=== PATIENT | male | born 1985 | race Caucasian/White ===

== ENCOUNTER 2018-08-16 15:44 | Outpatient (REF) | payer SELFPAY ==
[2018-08-16 16:58] LABS: Sperm(Post-Vasectomy) Absent
== END 2018-08-16 16:04 ==
LOC: NCHCO 15:44
PROVIDERS: PCP Nurse Practitioner Family; Visit Provider Nurse Practitioner
DX: Z98.52 Vasectomy status (principal)
CPT/HCPCS: 89321

== ENCOUNTER 2018-11-18 11:46 | Emergency (ER) | payer SELFPAY ==
[2018-11-18 11:50] VITALS: BP 118/77; PULSE 64; RESP 16; TEMP 36.5; O2SAT 99
--- NOTE | 2018-11-18 12:06 | W.ED.GENAD ---
Discharge Plan Disposition Patient Disposition: HOME Condition: Good Discharge Details Chief Complaint: Epistaxis Clinical Impression: Epistaxis Primary Care Provider: Florinda Green ED Provider: Jojo Monk Home Meds and New Rx's Prescriptions: No Action No Known Home Meds RF: 0 Discharge Instructions Instructions: Nosebleed (ED) Additional Instructions: Encourage hydration. Nasal saline nightly. Humidifier next to your bed. If you develop inability to control your nosebleeds or other new/worsening symptoms please seek care urgently once again. Otherwise, please follow-up with primary care in the next 1 to 2 weeks Referrals: Florinda Geren [Primary Care Provider] - Medical Decision Making Patient is a 33-year-old male presents today with chief complaint of intermittent epistaxis. He reports that for the past few weeks he has, on occasion, noted some small amount of blood when he blows his nose or with digital manipulation. He reports that he is tried to cut back on the digital manipulation as he found that this was an direct correlation to the bleeding. Patient denies any sinus discomfort, fever/chills, headache, congestion, sore throat. Denies any hematuria, bleeding per rectum, bleeding of gums. Denies any nasal trauma. On exam, the patient appears well. No abnormality noted on nasal exam. Patient was primarily seeking reassurance as he was concerned that his brain bleeding or that he may potentially bleed to from his nose given the chronicity symptoms. Advised that this is likely associated with digital manipulation as well as dry mucous membranes. I advised to notify her next was bad as well as nasal saline daily. We discussed new/worsening symptoms when to seek care urgently once again. Advise follow-up with primary care. All his questions and concerns were addressed and he is in agreement this plan HPI General Mode of arrival: ambulatory. Date/Time Provider Initiated Documentation: 11/18/18 12:06. Limitations to Documentation: no limitations. Information obtained by: patient and RN notes reviewed. History of Present Illness 33 year old M presents to the emergency department with the chief complaint of intermittent epistaxis, described as mild, and is localized to the face. Patient reports no radiation. Patient started experiencing this week(s) and it has been intermittent and now resolved. Other factors that worsen symptoms (notes more frequently at night) . Patient notes no other symptoms.. Patient did receive the following treatments prior to arrival, none Related Data Home Medications Medication Instructions Recorded Confirmed Unknown [No Known Home Meds] 11/18/18 11/18/18 Allergies Allergy/AdvReac Type Severity Reaction Status Date / Time No Known Allergies Allergy Unverified 11/18/18 11:56 General Stated Complaint: Epistaxis STEPHEN: 4 Review of Systems Constitutional Reports as per HPI and Denies headache(s) Eyes Reports as per HPI, Denies eye discharge and Denies irritation ENT Reports as per HPI, Denies change in voice, Denies otalgia, Denies facial pain, Denies headache(s), Denies post nasal drip, Denies sinus pain, Denies sore throat, Denies tongue swelling and Reports other (epistaxis) Cardiovascular Reports as per HPI, Denies chest pain and Denies dyspnea Respiratory Reports as per HPI, Denies cough and Denies dyspnea Gastrointestinal Reports as per HPI, Denies abdominal pain, Denies change in bowel habits, Denies nausea and Denies vomiting Integumentary/Breasts Reports as per HPI and Denies rash Neurologic Reports as per HPI and Denies headache(s) Allergic/Immunologic Denies tongue swelling [facility] Social History Smoking/Tobacco Use Status: Never Alcohol Intake: current Alcohol Intake frequency: a few times a week Drug use: Never Do you feel safe at home: Yes Do you feel safe in your relationship?: Yes Exam Const General: cooperative, healthy appearing, comfortable, no acute distress, well developed and well groomed Nutritional Appearance: average body habitus and well nourished Orientation: alert and awake [facility] Head: normal to inspection, normocephalic and atraumatic Ears: hearing grossly normal bilaterally, external ears normal and TM's normal bilaterally General nose exam: external nose normal, nares normal, no nasal polyps, nasal mucous membranes and turbinates normal, septum normal, no nasal discharge and no epistaxis Face and sinus: normal facial exam, sinuses nontender and face symmetric Mouth: oral mucosae normal, lip normal, tongue normal, oropharynx normal and moist mucous membranes Teeth and gingiva: dentition normal Throat: posterior oropharynx normal, tonsils normal and uvula midline Eyes General: appearance normal, both eyes and all related structures Neck Neck: normal visual inspection, full ROM, no lymphadenopathy and no meningeal signs Resp Effort & Inspection: normal respiratory effort, able to speak in complete sentences and no respiratory distress Auscultation: clear to auscultation bilaterally, no rales, no rhonchi and no wheezes Cardio Rate: regular rate Rhythm: regular rhythm Heart Sounds: S1 normal and S2 normal Skin General skin exam: no rashes or lesions noted Neuro General: alert and awake Cognition: normal cognition Speech: speech normal Gait: normal gait Psych Appearance: grossly normal and well kempt Mental Status: mental status grossly normal Speech and Movement: speech and movement normal Course Vital Signs Temperature 36.5 C 11/18/18 11:50 Pulse 64 11/18/18 11:50 Respiratory Rate 16 11/18/18 11:50 Blood Pressure 118/77 11/18/18 11:50 Pulse Oximetry 99 11/18/18 11:50 Temperature 36.5 C 11/18/18 11:50 Pulse 64 11/18/18 11:50 Respiratory Rate 16 11/18/18 11:50 Respiratory Effort Non-Labored 11/18/18 11:54 Blood Pressure 118/77 11/18/18 11:50 Pulse Oximetry 99 11/18/18 11:50 Oxygen Delivery Method Room Air 11/18/18 11:50 Oxygen Flow Rate 0 11/18/18 11:50 Pain Level 1 11/18/18 11:50
--- NOTE | 2018-11-18 12:10 | ED.GENADUL_ITS ---
Discharge Plan Disposition Patient Disposition: HOME Condition: Good Discharge Details Chief Complaint: Epistaxis Clinical Impression: Epistaxis Primary Care Provider: Florinda Green ED Provider: Jojo Monk Home Meds and New Rx's Prescriptions: No Action No Known Home Meds RF: 0 Discharge Instructions Instructions: Nosebleed (ED) Additional Instructions: Encourage hydration. Nasal saline nightly. Humidifier next to your bed. If you develop inability to control your nosebleeds or other new/worsening symptoms please seek care urgently once again. Otherwise, please follow-up with primary care in the next 1 to 2 weeks Referrals: Florinda Green [Primary Care Provider] - Medical Decision Making Patient is a 33-year-old male presents today with chief complaint of intermittent epistaxis. He reports that for the past few weeks he has, on occasion, noted some small amount of blood when he blows his nose or with digital manipulation. He reports that he is tried to cut back on the digital manipulation as he found that this was an direct correlation to the bleeding. Patient denies any sinus discomfort, fever/chills, headache, congestion, sore throat. Denies any hematuria, bleeding per rectum, bleeding of gums. Denies any nasal trauma. On exam, the patient appears well. No abnormality noted on nasal exam. Patient was primarily seeking reassurance as he was concerned that his brain bleeding or that he may potentially bleed to from his nose given the chronicity symptoms. Advised that this is likely associated with digital manipulation as well as dry mucous membranes. I advised to notify her next was bad as well as nasal saline daily. We discussed new/worsening symptoms when to seek care urgently once again. Advise follow-up with primary care. All his questions and concerns were addressed and he is in agreement this plan HPI General Mode of arrival: ambulatory . Date/Time Provider Initiated Documentation: 11/18/18 12:06 . Limitations to Documentation: no limitations . Information obtained by: patient and RN notes reviewed . History of Present Illness 33 year old M presents to the emergency department with the chief complaint of intermittent epistaxis, described as mild, and is localized to the face. Patient reports no radiation. Patient started experiencing this week(s) and it has been intermittent and now resolved. Other factors that worsen symptoms (notes more frequently at night) . Patient notes no other symptoms.. Patient did receive the following treatments prior to arrival, none Related Data Home Medications Medication Instructions Recorded Confirmed Unknown [No Known Home Meds] 11/18/18 11/18/18 Allergies Allergy/AdvReac Type Severity Reaction Status Date / Time No Known Allergies Allergy Unverified 11/18/18 11:56 General Stated Complaint: Epistaxis STEPHEN: 4 Review of Systems Constitutional Reports as per HPI and Denies headache(s) Eyes Reports as per HPI, Denies eye discharge and Denies irritation ENT Reports as per HPI, Denies change in voice, Denies otalgia, Denies facial pain, Denies headache(s), Denies post nasal drip, Denies sinus pain, Denies sore throat, Denies tongue swelling and Reports other (epistaxis) Cardiovascular Reports as per HPI, Denies chest pain and Denies dyspnea Respiratory Reports as per HPI, Denies cough and Denies dyspnea Gastrointestinal Reports as per HPI, Denies abdominal pain, Denies change in bowel habits, Denies nausea and Denies vomiting Integumentary/Breasts Reports as per HPI and Denies rash Neurologic Reports as per HPI and Denies headache(s) Allergic/Immunologic Denies tongue swelling [facility] Social History Smoking/Tobacco Use Status: Never Alcohol Intake: current Alcohol Intake frequency: a few times a week Drug use: Never Do you feel safe at home: Yes Do you feel safe in your relationship?: Yes Exam Const General: cooperative, healthy appearing, comfortable, no acute distress, well de veloped and well groomed Nutritional Appearance: average body habitus and well nourished Orientation: alert and awake [facility] Head: normal to inspection, normocephalic and atraumatic Ears: hearing grossly normal bilaterally, external ears normal and TM's normal bilaterally General nose exam: external nose normal, nares normal, no nasal polyps, nasal mucous membranes and turbinates normal, septum normal, no nasal discharge and no epistaxis Face and sinus: normal facial exam, sinuses nontender and face symmetric Mouth: oral mucosae normal, lip normal, tongue normal, oropharynx normal and moist mucous membranes Teeth and gingiva: dentition normal Throat: posterior oropharynx normal, tonsils normal and uvula midline Eyes General: appearance normal, both eyes and all related structures Neck Neck: normal visual inspection, full ROM, no lymphadenopathy and no meningeal signs Resp Effort & Inspection: normal respiratory effort, able to speak in complete sentences and no respiratory distress Auscultation: clear to auscultation bilaterally, no rales, no rhonchi and no wheezes Cardio Rate: regular rate Rhythm: regular rhythm Heart Sounds: S1 normal and S2 normal Skin General skin exam: no rashes or lesions noted Neuro General: alert and awake Cognition: normal cognition Speech: speech normal Gait: normal gait Psych Appearance: grossly normal and well kempt Mental Status: mental status grossly normal Speech and Movement: speech and movement normal Course Vital Signs Temperature 36.5 C 11/18/18 11:50 Pulse 64 11/18/18 11:50 Respiratory Rate 16 11/18/18 11:50 Blood Pressure 118/77 11/18/18 11:50 Pulse Oximetry 99 11/18/18 11:50 Temperature 36.5 C 11/18/18 11:50 Pulse 64 11/18/18 11:50 Respiratory Rate 16 11/18/18 11:50 Respiratory Effort Non-Labored 11/18/18 11:54 Blood Pressure 118/77 11/18/18 11:50 Pulse Oximetry 99 11/18/18 11:50 Oxygen Delivery Method Room Air 11/18/18 11:50 Oxygen Flow Rate 0 11/18/18 11:50 Pain Level 1 11/18/18 11:50
[2018-11-18 12:12] VITALS: BP 118/77; PULSE 64; RESP 16; TEMP 36.5; O2SAT 99
== END 2018-11-18 12:13 | disposition home or self-care (01) ==
PROVIDERS: Emergency Provider Physician Assistant; PCP Nurse Practitioner Family
DX: R04.0 Epistaxis (principal)
CPT/HCPCS: 99282

== ENCOUNTER → 2020-08-27 23:37 | Outpatient (REF) | payer SELFPAY ==
[2020-08-29 14:08] LABS: Chlamydia Result Negative (Negative); GC Result Negative (Negative)
== END ==
LOC: LBN 23:37
PROVIDERS: PCP Nurse Practitioner Family; Visit Provider Physician Assistant Medical
DX: Z11.3 Encounter for screening for infections with a predominantly sexual mode of transmission (principal)
CPT/HCPCS: 87491; 87591

== ENCOUNTER 2020-08-30 20:58 | Outpatient (REF) | payer SELFPAY ==
[2020-09-05 11:38] LABS: Source Urine
[2020-09-05 11:39] LABS: T.vaginalis, Misc, RNA Negative (Negative)
== END 2020-08-30 20:59 | disposition home or self-care (01) ==
LOC: NCHCN 20:58
PROVIDERS: PCP Nurse Practitioner Family; Visit Provider Nurse Practitioner Family
DX: Z11.3 Encounter for screening for infections with a predominantly sexual mode of transmission (principal)
CPT/HCPCS: 87661

== ENCOUNTER 2020-09-05 14:11 | Outpatient (REF) | payer SELFPAY ==
[2020-09-06 11:42] LABS: HSV 1 DNA Result Negative (Negative); HSV 2 DNA Result Negative (Negative); Varicella Zoster DNA Result Negative (Negative)
== END 2020-09-05 14:12 | disposition home or self-care (01) ==
LOC: LBN 14:11
PROVIDERS: PCP Nurse Practitioner Family; Visit Provider Nurse Practitioner Family
DX: N34.2 Other urethritis (principal)
CPT/HCPCS: 87529; 87798

== ENCOUNTER 2020-09-08 15:23 | Outpatient (REF) | payer SELFPAY | END 2020-09-08 15:24 | disposition home or self-care (01) | LOC: NCHCN 15:23 | PROVIDERS: PCP Nurse Practitioner Family; Visit Provider Family Medicine | DX: N34.2 Other urethritis (principal) | CPT/HCPCS: 87086 ==

== ENCOUNTER 2020-09-25 11:09 | Emergency (ER) | payer SELFPAY ==
[2020-09-25 11:13] VITALS: BP 115/87; PULSE 69; RESP 16; TEMP 36.7; O2SAT 99
--- NOTE | 2020-09-25 11:37 | ED.GENADUL_ITS ---
Discharge Plan Disposition Patient Disposition: HOME Condition: Stable Discharge Details Clinical Impression: Dysuria, Discharge from penis without blood Primary Care Provider: Florinda Green ED Provider: Marie Tidwell Home Meds and New Rx's Prescriptions: No Action No Known Home Meds RF: 0 Discharge Instructions Instructions: Safe Sex Practices (ED), Dysuria (ED) Additional Instructions: At this time urine culture is pending. You are given azithromycin 1 g p.o. here in department to cover for any possible STDs. At this time your urine shows no signs of infection. If you do need to be placed on another antibiotic we will call you when the culture is resulted. Abstain from sexual intercourse until the gonorrhea and Chlamydia test have come back. Please practice safe sex i.e. using a condom. Do not place anything into your urethra. Follow up with primary care provider in 3-5 days. Return to ED sooner if any worsening or concerns. Increase oral fluids. Please take Tylenol or Ibuprofen with food every 4-6 hours as needed for pain and swelling. Referrals: Florinda Green [Primary Care Provider] - Discharge Data Discharge Date/Time-TO BE ENTERED AT DEPARTURE: 09/25/20 13:23 Medical Decision Making 35-year-old male presents to the ER with chief complaint of dysuria, penile discharge, suprapubic fullness or bladder cramping which has been ongoing intermittently for the last 2 to 3 weeks. He has been seen in urgent care approximately 4 times prior to this and had been previously positive for chlamydia. He was treated with ceftriaxone and azithromycin. There is questionable trichomonas which he was also treated for at urgent care. He did complete 10-day course of ciprofloxacin for UTI last antibiotic was a week ago. He states that symptoms returned shortly after completing the antibiotic course. Report received from [facility] is that he had been putting soap and water down his urethra after sex approximately 1 month ago. Patient denies placing any other substances down his urethra. He denies any nausea vomiting, no diarrhea. No fever or chills. He denies any sore throat. Patient states that he was tested and for HSV which was negative previously as well. DC chlamydia swab ordered, urinalysis clean-catch ordered. Differential diagnosis includes but not limited to gonorrhea chlamydia, syphilis, herpes, UTI. Urinalysis at this time is within normal limits, no leukocytes no nitrites urine culture order was placed. Gonorrhea chlamydia pending at this time. Patient was given azithromycin 1 g p.o. here in the department to cover for possible STD. I did not place patient on any more antibiotics at this time due to no indication for UTI. Discussed case sex practices with patient and using a condom. I also discussed abstaining from sexual intercourse until partner is tested and treated as well. Patient verbalized understanding. This text was generated using [employer] dictation system, please disregard any oddities of phrase or misspellings. HPI General Mode of arrival: ambulatory . Date/Time Provider Initiated Documentation: 09/25/20 11:14 . Limitations to Documentation: no limitations . Information obtained by: patient . HPI Narrative: 35-year-old male presents to the ER with chief complaint of dysuria, penile discharge, suprapubic fullness or bladder cramping which has been ongoing intermittently for the last 2 to 3 weeks. He has been seen in urgent care approximately 4 times prior to this and had been previously positive for chlamydia. He was treated with ceftriaxone and azithromycin. There is questionable trichomonas which he was also treated for at urgent care. He did complete 10-day course of ciprofloxacin for UTI last antibiotic was a week ago. He states that symptoms returned shortly after completing the antibiotic course. Report received from [facility] is that he had been putting soap and water down his urethra after sex approximately 1 month ago. Patient denies placing any other substances down his urethra. He denies any nausea vomiting, no diarrhea. No fever or chills. He denies any sore throat. Patient states that he was tested and for HSV which was negative previously as well. Related Data Home Medications Medication Instructions Recorded Confirmed Unknown [No Known Home Meds] 11/18/18 11/18/18 Allergies Allergy/AdvReac Type Severity Reaction Status Date / Time amoxicillin Allergy Swelling/Ed Unverified 09/25/20 11:16 aimee General Stated Complaint: Urinary STEPHEN: 4 Review of Systems Narrative: Constitutional: Negative for weight loss, alert and oriented, well groomed, normal body habitus, appears comfortable. HEENT: Denies trauma, headaches, blurry vision, nasal discharge, sore throat, trouble swallowing. Chest: Denies chest pain, palpitations, irregular rhythm, hypertension. Respiratory: Denies Shortness of breath, cough, hemoptysis. GI: Denies abdominal pain, nausea, vomiting, diarrhea, constipation. : Denies hematuria, flank pain, rectal bleeding. Positive dysuria, urinary hesitancy, suprapubic bladder fullness, penile discharge which he reports is white. Neuro: Denies dizziness, blurry vision, weakness, syncope, headache or facial numbness. Hematologic: Denies easy bruising, intolerance to heat or cold, hair loss. [facility] Social History Smoking/Tobacco Use Status: Never Smoking risk assessment performed?: Yes Alcohol Intake: current Alcohol Intake frequency: a few times a week Drug use: Never Do you feel safe at home: Yes Do you feel safe in your relationship?: Yes Exam Narrative Exam Narrative: Constitutional: Alert and oriented x3. Appears stated age. Normal body habitus. Head: Normocephalic, no trauma. Eyes: Pupils PERRLA, Red reflex noted, EOM's intact. Eyelids symmetrical without lesions, discharge, or swelling. ENT: Bilateral TM's WNL, External ear normal to inspection, no mastoid TTP, swelling, or erythema, Nasal turbinates WNL, no nasal discharge. Normal dentition, Posterior pharynx WNL, no exudate. Chest: RRR, Normal S1, S2, distal pulses intact. Resp: Lungs clear to auscultation bilaterally, no wheezes, rales, or rhonchi. Musculoskeletal: Normal gait, 5/5 strength to all four extremities. Abdomen: Soft, nondistended, questionable mild tenderness to palpation suprapubically over the bladder. Genitourinary: No testicle pain, no erythema or swelling noted. Intact spermatic reflex bilaterally, no lesions noted to the penile shaft or penile meatus, there is slight erythema surrounding the urethra, small amount of clear discharge noted. Crematic reflex intact bilaterally. Skin: No suspicious rashes or lesions. Capillary refill less than 2 sec. Neurologic: Cranial nerves II-XII intact. Alert and oriented x 3. DTR's intact. Hematologic/Lymphatic: No ecchymosis, no lymphadenopathy. Course Vital Signs Vital signs: Vital Signs Temperature 36.7 C 09/25/20 11:13 Pulse 69 09/25/20 11:13 Respiratory Rate 16 09/25/20 11:13 Blood Pressure 115/87 09/25/20 11:13 Pulse Oximetry 99 09/25/20 11:13 Temperature 36.7 C 09/25/20 11:13 Pulse 69 09/25/20 11:13 Respiratory Rate 16 09/25/20 11:13 Respiratory Effort 09/25/20 11:17 Blood Pressure 115/87 09/25/20 11:13 Blood Pressure Position Sitting 09/25/20 11:13 Pulse Oximetry 99 09/25/20 11:13 Oxygen Delivery Method Room Air 09/25/20 11:13 Oxygen Flow Rate 0 09/25/20 11:13 Pain Level 2 09/25/20 11:13
[2020-09-25 12:18] LABS: Bilirubin Negative (Negative); Blood Negative (Negative); Clarity Clear (Clear); Glucose Negative (Negative); Ketones Negative (Negative); Leukocyte Esterase Negative (Negative); Nitrite Negative (Negative); Urobilinogen 0.2 EU/dL (Up TO 0.2)
[2020-09-25] MEDS: Azithromycin 250 MG TAB 1000 MG PO (12:44)
[2020-09-26 14:04] LABS: Chlamydia Result Negative (Negative); GC Result Negative (Negative)
== END 2020-09-25 13:23 | disposition home or self-care (01) ==
PROVIDERS: Emergency Provider Registered Nurse Emergency; PCP Nurse Practitioner Family
DX: R30.0 Dysuria (principal); R36.0 Urethral discharge without blood; N32.89 Other specified disorders of bladder
CPT/HCPCS: 87491; 87591; 99283; 81003

== ENCOUNTER 2020-10-01 08:54 | Emergency (ER) | payer SELFPAY ==
--- NOTE | 2020-10-01 09:00 | DI.US_ITS ---
EXAM: US RENAL CLINICAL HISTORY: bilateral flank pain dysuria. TECHNIQUE: Boateng scale, color and spectral Doppler were used. COMPARISON: CT LEFT LOWER EXTREM WO CONTRAST from 08/25/2012 CT LEFT LOWER EXTREM WO CONTRAST from 08/25/2012 US SCROTUM US from 08/10/2013 FINDINGS: Renal size in cm: Right: 10.2 left: 10.6 Echogenicity: Normal Hydronephrosis: No Cyst or mass: No Nephrolithiasis: No Bladder:Normal Prevoid vol:196 Postvoid vol: 4 Prostate volume 28 cc IMPRESSION: No evidence of hydronephrosis or renal calculi. Unremarkable bladder. DATA REPOSITORY:
[2020-10-01 09:02] VITALS: BP 118/64; PULSE 77; RESP 18; TEMP 36.9; O2SAT 99
--- NOTE | 2020-10-01 09:17 | W.ED.GENAD ---
Discharge Plan Disposition Patient Disposition: HOME Condition: Stable Discharge Details Clinical Impression: Dysuria, Discharge from penis Primary Care Provider: Florinda Green ED Provider: Marie Tidwell Home Meds and New Rx's Prescriptions: No Action No Known Home Meds RF: 0 Discharge Instructions Instructions: Dysuria (ED) Additional Instructions: At this time there is no evidence for urinary tract infection, no kidney stone no swelling or inflammation to your bladder. There is no evidence of your labs for infection. At this time the additional syphilis test is pending. I recommend mild soap with normal showers daily, loose fitting clothes, loose fitting underwear. Keep urology follow-up appointment on October 25. Please call your primary care provider to make an appointment within 3 to 5 days. Referrals: Florinda Green [Primary Care Provider] - Discharge Data Discharge Date/Time-TO BE ENTERED AT DEPARTURE: 10/01/20 11:17 Medical Decision Making 35-year-old male presents to the ED for the second time in 1 week with repetitive chief complaint of dysuria, penile discharge, bilateral flank pain. He denies any nausea vomiting diarrhea, no chills or myalgias. He does report some mild lower suprapubic pressure and tenderness. He states that he wakes up with white penile discharge on his underwear. He has been treated for STDs recently, he was given 1 g azithromycin last week, he was tested negative for gonorrhea chlamydia had no evidence of UTI. He states that he has a new rash to the head of his penis which is slightly erythemic with small little papules. No other lesions or ulcerations noted no testicle swelling or testicular tenderness. He denies any hematuria or hematochezia. He states he has not had sexual intercourse since being seen last week. At this time CBC, CMP, urinalysis, syphilis test, renal ultrasound ordered, offered HIV test, patient declined at this time. CBC is largely within normal limits, CMP is also largely within normal limit no evidence of leukocytosis, infection or inflammation. EXAM: US RENAL CLINICAL HISTORY: bilateral flank pain dysuria. TECHNIQUE: Boateng scale, color and spectral Doppler were used. COMPARISON: CT LEFT LOWER EXTREM WO CONTRAST from 08/25/2012 CT LEFT LOWER EXTREM WO CONTRAST from 08/25/2012 US SCROTUM US from 08/10/2013 FINDINGS: Renal size in cm: Right: 10.2 left: 10.6 Echogenicity: Normal Hydronephrosis: No Cyst or mass: No Nephrolithiasis: No Bladder:Normal Prevoid vol:196 Postvoid vol: 4 Prostate volume 28 cc IMPRESSION: No evidence of hydronephrosis or renal calculi. Unremarkable bladder. I once again strongly encouraged patient to follow-up with PCP and or keep urology appointment on October 25. I discussed his pending lab results for syphilis. At this time there is no evidence of urinary tract infection or any treatable disease. Patient verbalized understanding. HPI General Mode of arrival: ambulatory. Date/Time Provider Initiated Documentation: 10/01/20 08:57. Limitations to Documentation: no limitations. Information obtained by: patient. HPI Narrative: 35-year-old male presents to the ED for the second time in 1 week with repetitive chief complaint of dysuria, penile discharge, bilateral flank pain. He denies any nausea vomiting diarrhea, no chills or myalgias. He does report some mild lower suprapubic pressure and tenderness. He states that he wakes up with white penile discharge on his underwear. He has been treated for STDs recently, he was given 1 g azithromycin last week, he was tested negative for gonorrhea chlamydia had no evidence of UTI. He states that he has a new rash to the head of his penis which is slightly erythemic with small little papules. No other lesions or ulcerations noted no testicle swelling or testicular tenderness. He denies any hematuria or hematochezia. He states he has not had sexual intercourse since being seen last week. Related Data Home Medications Medication Instructions Recorded Confirmed Unknown [No Known Home Meds] 11/18/18 10/01/20 Allergies Allergy/AdvReac Type Severity Reaction Status Date / Time amoxicillin Allergy Swelling/Ed Unverified 10/01/20 09:06 aimee General Stated Complaint: Urinary STEPHEN: 4 Review of Systems Narrative: Constitutional: Negative for weight loss, alert and oriented, well groomed, normal body habitus, appears comfortable. HEENT: Denies trauma, headaches, blurry vision, nasal discharge, sore throat, trouble swallowing. Chest: Denies chest pain, palpitations, irregular rhythm, hypertension. Respiratory: Denies Shortness of breath, cough, hemoptysis. GI: Denies abdominal pain, nausea, vomiting, diarrhea, constipation. : Denies hematuria, rectal bleeding. He reports dysuria, penile discharge, mild erythema, rash to the penile head, painful ejaculation. Neuro: Denies dizziness, blurry vision, weakness, syncope, headache or facial numbness. Hematologic: Denies easy bruising, intolerance to heat or cold, hair loss. [facility] Social History Smoking/Tobacco Use Status: Never Smoking risk assessment performed?: Yes Alcohol Intake: current Alcohol Intake frequency: a few times a week Drug use: Never Do you feel safe at home: Yes Do you feel safe in your relationship?: Yes Exam Narrative Exam Narrative: Constitutional: Alert and oriented x3. Appears stated age. Normal body habitus. Head: Normocephalic, no trauma. Eyes: Pupils PERRLA, Red reflex noted, EOM's intact. Eyelids symmetrical without lesions, discharge, or swelling. ENT: Bilateral TM's WNL, External ear normal to inspection, no mastoid TTP, swelling, or erythema, Nasal turbinates WNL, no nasal discharge. Normal dentition, Posterior pharynx WNL, no exudate. Chest: RRR, Normal S1, S2, distal pulses intact. Resp: Lungs clear to auscultation bilaterally, no wheezes, rales, or rhonchi. Musculoskeletal: Normal gait, 5/5 strength to all four extremities. Genitourinary: Mild tenderness with palpation to the penile shaft, clear-juan carlos discharge noted to the urethral meatus, questionable amount of urine erythema some small papules noted to the penile head. Bilateral testicles appear within normal limits. No other lesions or abnormalities visualized. Skin: No suspicious rashes or lesions. Capillary refill less than 2 sec. Neurologic: Cranial nerves II-XII intact. Alert and oriented x 3. DTR's intact. Hematologic/Lymphatic: No ecchymosis, no lymphadenopathy. Course Vital Signs Vital signs: Vital Signs Temperature 36.9 C 10/01/20 09:02 Pulse 77 10/01/20 09:02 Respiratory Rate 18 10/01/20 09:02 Blood Pressure 118/64 10/01/20 09:02 Pulse Oximetry 99 10/01/20 09:02 Temperature 36.9 C 10/01/20 09:02 Temperature Source Oral 10/01/20 09:02 Pulse 77 10/01/20 09:02 Respiratory Rate 18 03/08/21 09:02 Respiratory Effort Non-Labored 10/01/20 09:07 Blood Pressure 118/64 10/01/20 09:02 Blood Pressure Position Sitting 10/01/20 09:02 Pulse Oximetry 99 10/01/20 09:02 Oxygen Delivery Method Room Air 10/01/20 09:02 Oxygen Flow Rate 0 10/01/20 09:02
[2020-10-01 09:53] LABS: Abs Immature Grans 0.01 10^3/uL (0.0-0.06); Absolute Basophil Count 0.03 10^3/uL (0.0-0.2); Absolute Eosinophil Count 0.13 10^3/uL (0.0-0.7); Absolute Lymphocyte Count 1.37 10^3/uL (1.2-3.4); Absolute Monocyte Count 0.31 10^3/uL (0.1-0.8); Absolute Neutrophil Count 3.82 10^3/uL (1.2-6.7); Basophils % 0.5; Eosinophils % 2.3; HCT 45.3 % (40.0-50.0); HGB 15.4 g/dL (13.5-17.5); Immature Grans % 0.2; Lymphocytes % 24.2; MCH 30.3 pg (27.0-33.0); MPV 9.6 fL (8.0-11.0); Monocytes % 5.5; Neutrophils % 67.3; Nucleated RBC 0 %; Platelet Count 265 10^3/uL (130-400); RBC 5.09 10^6/uL (4.36-5.78); RDW 11.4 % (11.8-14.1); RDW-SD 36.9 fL; WBC 5.67 10^3/uL (4.4-10.8)
[2020-10-01 10:08] LABS: ALT 35 U/L (16-63); AST 16 U/L (15-37); Albumin 4.2 g/dL (3.4-5.0); Alkaline Phosphatase 59 U/L (46-116); Anion Gap 8.6 mmol/L (3-11); BUN 16 mg/dL (7-18); Bilirubin, Total 0.8 mg/dL (0.2-1.0); CO2 29.4 mmol/L (21.0-32.0); Calcium 9.4 mg/dL (8.5-10.1); Chloride 103 mmol/L (98-107); Glucose 107 mg/dL (74-106); Potassium 3.5 mmol/L (3.5-5.1); Sodium 141 mmol/L (136-145); Total Protein 8.2 g/dL (6.4-8.2)
[2020-10-01] MEDS: Normal Saline 500 ML IV (10:15)
[2020-10-01 10:55] LABS: Bilirubin Negative (Negative); Blood Negative (Negative); Clarity Sl Cloudy (Clear); Glucose Negative (Negative); Ketones Negative (Negative); Leukocyte Esterase Negative (Negative); Nitrite Negative (Negative); Urobilinogen 0.2 EU/dL (Up TO 0.2); pH 6.5 (5-8)
[2020-10-02 15:43] LABS: Syphilis Total Ab w/Reflex Nonreactive (Nonreactive)
== END 2020-10-01 11:17 | disposition home or self-care (01) ==
PROVIDERS: Emergency Provider Registered Nurse Emergency; PCP Nurse Practitioner Family
DX: R30.0 Dysuria (principal); R36.9 Urethral discharge, unspecified; R10.30 Lower abdominal pain, unspecified
CPT/HCPCS: 36415; 76770; 80053; 96360; 99284; 81003; 85025; 86592; 86780; J3490

== ENCOUNTER 2020-10-19 10:39 | Outpatient (REF) | payer SELFPAY ==
[2020-10-22 14:56] LABS: Chlamydia Result Negative (Negative); GC Result Negative (Negative)
== END 2020-10-19 10:40 | disposition home or self-care (01) ==
LOC: NCHCN 10:39
PROVIDERS: PCP Nurse Practitioner Family; Visit Provider Internal Medicine
DX: N34.2 Other urethritis (principal)
CPT/HCPCS: 87491; 87591

== ENCOUNTER 2020-12-04 21:44 | Outpatient (REF) | payer SELFPAY ==
[2020-12-05 15:01] LABS: Chlamydia Result Negative (Negative); GC Result Negative (Negative)
== END 2020-12-04 21:45 | disposition home or self-care (01) ==
LOC: NCHCN 21:44
PROVIDERS: PCP Nurse Practitioner Family; Visit Provider Internal Medicine
DX: R36.9 Urethral discharge, unspecified (principal)
CPT/HCPCS: 87491; 87591

== ENCOUNTER 2021-01-17 20:01 | Emergency (ER) | payer SELFPAY ==
[2021-01-17 20:16] VITALS: BP 125/86; PULSE 59; RESP 16; TEMP 36.9; O2SAT 98
--- NOTE | 2021-01-17 20:57 | W.ED.GENAD ---
Discharge Plan Disposition Patient Disposition: HOME Condition: Stable Discharge Details Clinical Impression: Dental infection Primary Care Provider: Florinda Green ED Provider: Jo-Ann Call Home Meds and New Rx's Prescriptions: New clindamycin HCl 300 mg capsule 300 mg PO QID Qty: 28 RF: 0 ibuprofen 600 mg tablet 600 mg PO QID PRNQty: 40 RF: 0 Discharge Instructions Instructions: Dental Abscess (ED) Additional Instructions: take antibiotics as prescribed use ibuprofen 600 mg 4 times daily for pain, take with food. can add acetaminophen 650 mg 4 times daily if needed for breakthrough pain Referrals: Florinda Green [Primary Care Provider] - (outpatient dentist farhan) Discharge Data Discharge Date/Time-TO BE ENTERED AT DEPARTURE: 01/17/21 21:19 Medical Decision Making patient presents with dental pain associated with a fractured tooth. no system infection suspected, no obvious abscess to drain. will treat with clindamycin d/t amox allergy. list of dentist provided. Medical Records Medical records reviewed: Yes I reviewed the patient's medical records. HPI General Mode of arrival: ambulatory. Date/Time Provider Initiated Documentation: 01/17/21 20:41. Limitations to Documentation: no limitations. Information obtained by: patient. HPI Narrative: this is a 35 year old male with no sign medical history who presents to the ED with c/o right upper dental pain with fractured tooth #7. no fluctuant area noted. no systemic signs of infection, no fever, using ibuprofen and acetaminophen intermittently, pain persists. does not have established dental provider. Related Data Home Medications Medication Instructions Recorded Confirmed clindamycin HCl 300 mg PO QID #28 cap 01/17/21 ibuprofen 600 mg PO QID PRN #40 tab 01/17/21 Previous Rx's Medication Instructions Recorded clindamycin HCl 300 mg PO QID #28 cap 01/17/21 ibuprofen 600 mg PO QID PRN #40 tab 01/17/21 Allergies Allergy/AdvReac Type Severity Reaction Status Date / Time amoxicillin Allergy Swelling/Ed Unverified 01/17/21 20:20 aimee General Stated Complaint: DentalOral STEPHEN: 5 Review of Systems Constitutional Constitutional: Denies fever(s) ENT Ears, Nose, Mouth, and Throat: Reports dental pain and Denies tongue swelling Gastrointestinal Gastrointestinal: Denies nausea Allergic/Immunologic Allergic/Immunologic: Denies tongue swelling [facility] Social History Smoking/Tobacco Use Status: Never Smoking risk assessment performed?: Yes Alcohol Intake: current Alcohol Intake frequency: a few times a week Drug use: Never Do you feel safe at home: Yes Do you feel safe in your relationship?: Yes Exam Const General: cooperative, comfortable and no acute distress Nutritional Appearance: average body habitus Orientation: alert, awake and oriented x3 HENMT Head: normal to inspection, normocephalic and atraumatic Mouth: oral mucosae normal Teeth and gingiva: poor dentition (no fluctant area appreciated, fracture to #7) Resp Effort & Inspection: normal respiratory effort Cardio Other: pink warm dry and well perfused Skin General skin exam: no rashes or lesions noted Neuro General: patient alert, patient awake and patient oriented x3 Extrem General: normal to inspection and full ROM Course Vital Signs Vital signs: Vital Signs Temperature 36.9 C 01/17/21 20:16 Pulse 59 L 01/17/21 20:16 Respiratory Rate 16 01/17/21 20:16 Blood Pressure 125/86 01/17/21 20:16 Pulse Oximetry 98 01/17/21 20:16 Temperature 36.9 C 01/17/21 20:16 Temperature Source Skin 01/17/21 20:16 Pulse 59 L 01/17/21 20:16 Respiratory Rate 16 01/17/21 20:16 Respiratory Effort Non-Labored 01/17/21 20:21 Blood Pressure 125/86 01/17/21 20:16 Blood Pressure Position Sitting 01/17/21 20:16 Pulse Oximetry 98 01/17/21 20:16 Oxygen Delivery Method Room Air 01/17/21 20:16 Oxygen Flow Rate 0 01/17/21 20:16 Pain Level 8 01/17/21 20:22
[2021-01-17] MEDS: Clindamycin 150 MG CAP, 12 CAPS/BTL 300 MG PO (21:15)
[2021-01-17] MEDS: Ibuprofen 600 MG TAB, 6 TABS/BTL PO (21:16)
== END 2021-01-17 21:19 | disposition home or self-care (01) ==
PROVIDERS: Emergency Provider Nurse Practitioner Acute Care; PCP Nurse Practitioner Family
DX: K04.7 Periapical abscess without sinus (principal)
CPT/HCPCS: 99283

== ENCOUNTER 2021-02-02 21:59 | Emergency (ER) | payer SELFPAY ==
[2021-02-02 22:02] VITALS: BP 147/97; PULSE 75; RESP 18; TEMP 36.5; O2SAT 100
--- NOTE | 2021-02-02 22:50 | ED.GENADUL_ITS ---
Discharge Plan Disposition Patient Disposition: HOME Condition: Good Discharge Details Clinical Impression: Dental infection Primary Care Provider: Florinda Green ED Provider: Lorena Silva Home Meds and New Rx's Prescriptions: New ibuprofen 800 mg tablet 800 mg PO Q8H Qty: 20 RF: 0 No Action clindamycin HCl 300 mg capsule 300 mg PO QID Qty: 28 RF: 0 ibuprofen 600 mg tablet 600 mg PO QID PRNQty: 40 RF: 0 Discharge Instructions Instructions: Dental Abscess (ED) Additional Instructions: Take ibuprofen and Tylenol as needed for pain, ibuprofen 600 mg every 8 hours with food Tylenol 650 mg every 4-6 hours Stay away from very hot or cold beverages Follow-up with dentist, I have supplied a list for you Return with worsening pain, fever, or with any new or progressing symptoms Discharge Data Discharge Date/Time-TO BE ENTERED AT DEPARTURE: 02/02/21 23:10 Medical Decision Making Signs or symptoms consistent with Mark Anthony's angina, dental pain, suspect dental abscess, patient on appropriate therapies ibuprofen and antibiotic Dental block performed, infraorbital, tolerated without incident, pain resolved at time of discharge home Dental list supplied for patient follow-up Return precautions discussed and patient expressed understanding, discharged home in stable condition with stable vitals Uvula midline, no trismus, no indication for emergent intervention, no facial swelling Patient will need blood pressure recheck by primary care physician Medical Records Medical records reviewed: Yes I reviewed the patient's medical records. HPI General Mode of arrival: ambulatory . Date/Time Provider Initiated Documentation: 02/02/21 22:07 . Limitations to Documentation: no limitations . Information obtained by: patient . HPI Narrative: This 35-year-old gentleman presents with report of dental pain for the past several days. He has been on an antibiotic for the CMP without relief in symptoms. He denies any fever or chills. He denies any chest pain or shortness of breath. States the pain is exacerbated with eating and drinking. He has been taking ibuprofen for discomfort. He denies any known injuries to the affected area. Is not followed up with dentist. He denies any difficulty swallowing. Describes the pain as an ache. Related Data Home Medications Medication Instructions Recorded Confirmed clindamycin HCl 300 mg PO QID #28 cap 01/17/21 02/02/21 ibuprofen 600 mg PO QID PRN #40 tab 01/17/21 02/02/21 ibuprofen 800 mg PO Q8H #20 tab 02/02/21 Previous Rx's Medication Instructions Recorded clindamycin HCl 300 mg PO QID #28 cap 01/17/21 ibuprofen 600 mg PO QID PRN #40 tab 01/17/21 ibuprofen 800 mg PO Q8H #20 tab 02/02/21 Allergies Allergy/AdvReac Type Severity Reaction Status Date / Time amoxicillin Allergy Swelling/Ed Unverified 02/02/21 22:04 aimee General Stated Complaint: DentalOral SETPHEN: 5 Review of Systems Narrative: Review of systems obtained x3 and negative aside from indication in HPI [facility] Social History Smoking/Tobacco Use Status: Never Smoking risk assessment performed?: Yes Alcohol Intake: current Alcohol Intake frequency: a few times a week Drug use: Never Do you feel safe at home: Yes Do you feel safe in your relationship?: Yes Exam Const General: cooperative and no acute distress [facility] Teeth image: 1. Fracture, tenderness, no fluctuance, no soft palate induration, no evidence of deep space infection Other: Uvula midline, no trismus, maintaining secretions, no signs or symptoms of Ludewig's angina Course Vital Signs Vital signs: Vital Signs Temperature 36.5 C 02/02/21 22:02 Pulse 75 02/02/21 22:02 Respiratory Rate 18 02/02/21 22:02 Blood Pressure 147/97 H 02/02/21 22:02 Pulse Oximetry 100 02/02/21 22:02 Temperature 36.5 C 02/02/21 22:02 Pulse 75 02/02/21 22:02 Respiratory Rate 18 02/02/21 22:02 Respiratory Effort Non-Labored 02/02/21 22:05 Blood Pressure 147/97 H 02/02/21 22:02 Pulse Oximetry 100 02/02/21 22:02 Oxygen Delivery Method Room Air 02/02/21 22:02 Oxygen Flow Rate 0 02/02/21 22:02 Pain Level 10 02/02/21 22:05 Procedures Nerve Block Nerve Block 1: Time out performed: Yes Local Anesthetic: Bupivicaine 0.25% Amount of anesthesia used (mL): 2 Side: right Intraoral Nerve Block: infraorbital Procedure Successful: Yes Complications: none
[2021-02-02] MEDS: Bupivacaine 0.5% Pres-Free 30 ML VIAL (23:10)
== END 2021-02-02 23:10 | disposition home or self-care (01) ==
PROVIDERS: Emergency Provider Physician Assistant; PCP Nurse Practitioner Family
DX: K04.7 Periapical abscess without sinus (principal)
CPT/HCPCS: 64450; 99281

== ENCOUNTER 2021-05-31 15:02 | Outpatient (REF) | payer SELFPAY ==
[2021-06-03 15:20] LABS: GC Result Negative (Negative)
[2021-06-03 15:32] LABS: Chlamydia Result Positive (Negative)
== END 2021-05-31 15:03 | disposition home or self-care (01) ==
LOC: NCHCN 15:02
PROVIDERS: PCP Nurse Practitioner Family; Visit Provider Internal Medicine
DX: R30.0 Dysuria (principal)
CPT/HCPCS: 87491; 87591

== ENCOUNTER 2022-04-01 21:02 | Emergency (ER) | payer SELFPAY ==
[2022-04-01 21:15] VITALS: BP 114/58; PULSE 67; RESP 16; TEMP 35.5; O2SAT 100
[2022-04-01 22:29] LABS: Bilirubin Negative (Negative); Blood Trace-intact (Negative); Clarity Clear (Clear); Glucose Negative (Negative); Ketones Negative (Negative); Leukocyte Esterase Negative (Negative); Nitrite Negative (Negative); Urobilinogen 0.2 EU/dL (Up TO 0.2); pH 6.5 (5-8)
[2022-04-01 22:40] LABS: Bacteria Negative HPF (Negative); C & S Indicated? No; Crystals Negative HPF (Negative); Epithelial Cells Negative HPF (Negative); Mucus Negative (Negative); WBC Negative HPF (0-5)
--- NOTE | 2022-04-01 22:45 | W.ED.GENAD ---
Discharge Plan Disposition Patient Disposition: HOME Discharge Details Clinical Impression: Dysuria Primary Care Provider: Florinda Green ED Provider: Lorena Silva Home Meds and New Rx's Prescriptions: No Action ibuprofen 600 mg tablet 600 mg PO QID PRNQty: 40 0RF Discharge Data Discharge Date/Time-TO BE ENTERED AT DEPARTURE: 04/01/22 22:57 Medical Decision Making Patient does have red blood cells on his urinalysis, there is no evidence of infection, his GC chlamydia are pending Unfortunately he eloped prior to reassessment Clinically did not have evidence of ureterolithiasis but I would relay that he should have recheck of his urinalysis to be sure the blood results Medical Records Medical records reviewed: Yes I reviewed the patient's medical records. Lab Data Lab results reviewed: Yes I reviewed the patient's lab results. HPI General Date/Time Provider Initiated Documentation: 04/01/22 21:19. HPI Narrative: This 36-year-old male presents with couple nights ago. He states that the pain has gotten worse. He denies any chest pain or shortness of breath. He denies any nausea or vomiting. He denies any dysuria but has had frequency. He is also having some urgency. Denies risk of sexually transmitted disease. Denies history of similar symptoms in the past. Related Data Home Medications Medication Instructions Recorded Confirmed ibuprofen 600 mg tablet 600 mg PO QID PRN #40 tabs 01/17/21 04/01/22 Previous Rx's Medication Instructions Recorded ibuprofen 600 mg tablet 600 mg PO QID PRN #40 tabs 01/17/21 Allergies Allergy/AdvReac Type Severity Reaction Status Date / Time amoxicillin Allergy Swelling/Ed Unverified 04/01/22 21:19 aimee General Stated Complaint: Nk/Back Pain STEPHEN: 3 Review of Systems All systems reviewed & are unremarkable except as noted in HPI and below PFSH All Active Problems (Updated 04/04/22 @ 19:42 by DELPHINE Baker) Dysuria (Acute) Discharge from penis without blood (Acute) Discharge from penis (Acute) Dental infection (Acute) Social History Smoking/Tobacco Use Status: Never Smoking risk assessment performed?: Yes Alcohol Intake: current Alcohol Intake frequency: a few times a week Drug use: Never Do you feel safe at home: Yes Do you feel safe in your relationship?: Yes Exam Const General: cooperative, comfortable and no acute distress Orientation: alert and oriented x3 Resp Effort & Inspection: normal respiratory effort Auscultation: clear to auscultation bilaterally Cardio Rate: regular rate Rhythm: regular rhythm GI Inspection: normal to inspection Other: Mild CVA tenderness bilaterally, no abdominal bruit or pulsatile mass Skin General skin exam: no rashes or lesions noted Neuro General: patient alert and patient oriented x3 Extrem Other: Distal pulses intact Course Vital Signs Vital signs: Vital Signs Temperature 35.5 C L 04/01/22 21:15 Pulse 67 04/01/22 21:15 Respiratory Rate 16 04/01/22 21:15 Blood Pressure 114/58 L 04/01/22 21:15 Pulse Oximetry 100 04/01/22 21:15 Temperature 35.5 C L 04/01/22 21:15 Temperature Source Tympanic 04/01/22 21:15 Pulse 67 04/01/22 21:15 Respiratory Rate 16 04/01/22 21:15 Respiratory Effort Non-Labored 04/01/22 21:20 Blood Pressure 114/58 L 04/01/22 21:15 Pulse Oximetry 100 04/01/22 21:15 Pain Level 10 04/01/22 21:15 Lab/Test Results Lab/Test Results: Laboratory Tests Range/Units 04/01/22 21:30 Urine Color (Yellow) Yellow Urine Clarity (Clear) Clear Urine pH (5-8) 6.5 Ur Specific [place] (1.005-1.025) 1.020 Urine Protein (Negative) mg/dL Negative Urine Ketones (Negative) mg/dL Negative Urine Blood (Negative) Trace-intact H Urine Nitrite (Negative) Negative Urine Bilirubin (Negative) Negative Urine Urobilinogen (Up TO 0.2) EU/dL 0.2 Ur Leukocyte Esterase (Negative) Negative Urine RBC (0-2) HPF 3-5 H Urine WBC (0-5) HPF Negative Ur Epithelial Cells (Negative) HPF Negative Urine Crystals (Negative) HPF Negative Urine Bacteria (Negative) HPF Negative Urine Mucus (Negative) Negative Ur Culture Indicated? No Urine Glucose (Negative) mg/dL Negative PAWSS Have you Been Recently Intoxicated or Drunk Within the Last 30 days?: No Have you Ever Experienced Previous Episodes of Alcohol Withdrawal?: No Have you ever Experienced Withdrawal Seizures?: No Have you ever Experienced Delirium Tremens(DT)s?: No Have you ever undergone Alcohol Rehabilitation Treatment (i.e, inpt ot outpatient treatment programs)?: No Have you ever Experienced Blackouts?: No Have you ever Combined Alcohol with other Downers within the last 90 days?: No Have you ever Combined Alcohol with any other Substance of Abuse during the last 90 days?: No Positive Blood Alcohol level on Presentation? [PCS.BAL]: No Evidence of Increased Autonomic Activity (i.e. HR>120, tremor, sweating, agitation, nausea)?: No Result: 0
[2022-04-03 15:25] LABS: Chlamydia Result Negative (Negative); GC Result Negative (Negative)
== END 2022-04-01 22:57 | disposition home or self-care (01) ==
LOC: ER 21:15
PROVIDERS: Emergency Provider Physician Assistant; PCP Nurse Practitioner Family
DX: R30.0 Dysuria (principal); Z53.29 Procedure and treatment not carried out because of patient's decision for other reasons
CPT/HCPCS: 87491; 87591; 99281; 81003; 81015; 87086

== ENCOUNTER 2022-06-10 18:06 | Emergency (ER) | payer SELFPAY ==
[2022-06-10 18:18] VITALS: BP 120/69; PULSE 64; RESP 18; TEMP 37; O2SAT 98
[2022-06-10] MEDS: Clindamycin 150 MG CAP, 12 CAPS/BTL 450 MG PO (18:59)
--- NOTE | 2022-06-12 12:01 | ED.GENADUL_ITS ---
Discharge Plan Disposition Patient Disposition: HOME Condition: Stable Discharge Details Chief Complaint: DentalOral Clinical Impression: Dental infection Primary Care Provider: Florinda Green ED Provider: Lorena Silva Home Meds and New Rx's Prescriptions: New clindamycin HCl 150 mg capsule 450 mg PO TID Qty: 78 0RF Continued ibuprofen 600 mg tablet 600 mg PO QID PRNQty: 40 0RF Discharge Instructions Instructions: Dental Abscess (ED) Additional Instructions: Follow-up with your dentist Antibiotics daily Yogurt daily while on antibiotics Ibuprofen and Tylenol as needed for pain Return earlier should you have new or worsening complaints Referrals: Florinda Green [Primary Care Provider] - 1 day Discharge Data Discharge Date/Time-TO BE ENTERED AT DEPARTURE: 06/10/22 19:10 Medical Decision Making Patient appears well, no evidence of deep space infection, follow-up with dentist Placed on antibiotics. Return precautions reviewed and patient expressed understanding Medical Records Medical records reviewed: Yes I reviewed the patient's medical records. Sign Out No HPI General Date/Time Provider Initiated Documentation: 06/10/22 18:47 . HPI Narrative: This 37-year-old male presents with right dental pain. Front tooth. He states that he noticed an abscess 2 days ago, upon arrival he states it ruptured. He now tactile drainage and swelling. Denies difficulty swallowing, fever, chills, chest pain, shortness of breath. Otherwise reportedly healthy. Related Data Home Medications Medication Instructions Recorded Confirmed ibuprofen 600 mg tablet 600 mg PO QID PRN #40 tabs 01/17/21 06/10/22 clindamycin HCl 150 mg capsule 450 mg PO TID #78 caps 06/10/22 Previous Rx's Medication Instructions Recorded ibuprofen 600 mg tablet 600 mg PO QID PRN #40 tabs 01/17/21 clindamycin HCl 150 mg capsule 450 mg PO TID #78 caps 06/10/22 Allergies Allergy/AdvReac Type Severity Reaction Status Date / Time amoxicillin Allergy Swelling/Ed Unverified 06/10/22 18:24 aimee General Stated Complaint: DentalOral STEPHEN: 5 Review of Systems All systems reviewed & are unremarkable except as noted in HPI and below PFSH All Active Problems (Updated 06/10/22 @ 19:03 by DELPHINE Baker) Dysuria (Acute) Discharge from penis without blood (Acute) Discharge from penis (Acute) Dental infection (Acute) Social History Smoking/Tobacco Use Status: Never Smoking risk assessment performed?: Yes Alcohol Intake: current Alcohol Intake frequency: a few times a week Drug use: Never Substance use type: does not use Do you feel safe at home: Yes Do you feel safe in your relationship?: Yes Exam Const General: cooperative, comfortable and no acute distress HENMT Other: Abscess noted superiorly to #6, draining, uvula midline, no trismus, no evidence of deep space infection Resp Effort & Inspection: normal respiratory effort Cardio Rate: regular rate Course Vital Signs Vital signs: Vital Signs Temperature 37.0 C 06/10/22 18:18 Pulse 64 06/10/22 18:18 Respiratory Rate 18 06/10/22 18:18 Blood Pressure 120/69 06/10/22 18:18 Pulse Oximetry 98 06/10/22 18:18 Temperature 37.0 C 06/10/22 18:18 Temperature Source Temporal Artery Scan 06/10/22 18:18 Pulse 64 06/10/22 18:18 Respiratory Rate 18 06/10/22 18:18 Respiratory Effort Non-Labored 06/10/22 18:22 Blood Pressure 120/69 06/10/22 18:18 Blood Pressure Position Sitting 06/10/22 18:18 Pulse Oximetry 98 06/10/22 18:18 Oxygen Delivery Method Room Air 06/10/22 18:18 Oxygen Flow Rate 0 06/10/22 18:18 Pain Level 5 06/10/22 19:10 PAWSS Have you Been Recently Intoxicated or Drunk Within the Last 30 days?: No Have you Ever Experienced Previous Episodes of Alcohol Withdrawal?: No Have you ever Experienced Withdrawal Seizures?: No Have you ever Experienced Delirium Tremens(DT)s?: No Have you ever undergone Alcohol Rehabilitation Treatment (i.e, inpt ot outpatient treatment programs)?: No Have you ever Experienced Blackouts?: No Have you ever Combined Alcohol with other Downers within the last 90 days?: No Have you ever Combined Alcohol with any other Substance of Abuse during the last 90 days?: No Positive Blood Alcohol level on Presentation? [PCS.BAL]: No Evidence of Increased Autonomic Activity (i.e. HR>120, tremor, sweating, agitation, nausea)?: No Result: 0
== END 2022-06-10 19:10 | disposition home or self-care (01) ==
PROVIDERS: Emergency Provider Physician Assistant; PCP Nurse Practitioner Family
DX: K04.7 Periapical abscess without sinus (principal)
CPT/HCPCS: 99283

== ENCOUNTER 2022-06-22 11:15 | Emergency (ER) | payer SELFPAY ==
[2022-06-22 11:24] VITALS: BP 101/61; PULSE 82; RESP 16; TEMP 37.4; O2SAT 99
[2022-06-22 11:30] VITALS: RESP 16
--- NOTE | 2022-06-22 11:38 | ED.GENADUL_ITS ---
Discharge Plan Disposition Patient Disposition: Home Condition: Improving Discharge Details Clinical Impression: Sinusitis Primary Care Provider: Florinda Green ED Provider: Hans Escobedo Home Meds and New Rx's Prescriptions: New doxycycline hyclate 100 mg capsule 100 mg PO BID 10 Days Qty: 20 0RF Continued ibuprofen 600 mg tablet 600 mg PO QID PRNQty: 40 0RF Discharge Instructions Instructions: Sinusitis (ED) Additional Instructions: Please take doxycycline as prescribed until finished. Continue your routine diet and activities. Return to the ER for any acute concerns. Medical Decision Making 37-year-old male presents with days of postnasal drip now lasting approximately 2 weeks. It started with an antecedent cough that has improved. He has been productive of yellow sputum and has mild sinus tenderness to percussion. Consistent with acute sinusitis. We will treat him with a course of doxycycline given penicillin allergy. He is stable for outpatient management. Sign Out No HPI General Mode of arrival: ambulatory . Date/Time Provider Initiated Documentation: 06/22/22 11:29 . Limitations to Documentation: no limitations . Information obtained by: patient . History of Present Illness 37 year old M presents to the emergency department with the chief complaint of Postnasal drip and production of yellow sputum sometimes, described as moderate, Quality is described as dull and constant, and is localized to the head and face. Patient reports no radiation. Patient started experiencing this day(s) and it has been intermittent. No relieving factors improve symptom(s), No exacerbating factors reported . Patient notes denies cough, fever/chills, headaches, nausea/vomiting, shortness of breath and syncope. Related Data Home Medications Medication Instructions Recorded Confirmed ibuprofen 600 mg tablet 600 mg PO QID PRN #40 tabs 01/17/21 06/22/22 doxycycline hyclate 100 mg capsule 100 mg PO BID 10 days #20 caps 06/22/22 Previous Rx's Medication Instructions Recorded ibuprofen 600 mg tablet 600 mg PO QID PRN #40 tabs 01/17/21 doxycycline hyclate 100 mg capsule 100 mg PO BID 10 days #20 caps 06/22/22 Allergies Allergy/AdvReac Type Severity Reaction Status Date / Time amoxicillin Allergy Swelling/Ed Unverified 06/22/22 11:26 aimee General Stated Complaint: GenMedical STEPHEN: 4 Review of Systems Narrative: 6 systems reviewed and otherwise negative PFSH All Active Problems (Updated 06/22/22 @ 11:40 by Hans Escobedo MD) Dysuria (Acute) Discharge from penis without blood (Acute) Discharge from penis (Acute) Dental infection (Acute) Sinusitis (Acute) Social History Smoking/Tobacco Use Status: Never Smoking risk assessment performed?: Yes Alcohol Intake: current Alcohol Intake frequency: a few times a week Drug use: Never Substance use type: does not use Do you feel safe at home: Yes Do you feel safe in your relationship?: Yes Exam Narrative Exam Narrative: GEN: awake, alert, oriented 3. Pleasant, well groomed, interactive. HEAD: Normocephalic, atraumatic ENT: Mucous membranes moist, oropharynx unremarkable, right tympanic membrane occluded by wax, left tympanic membrane clear and well visualized, sinus tenderness to percussion left maxillary and frontal, external ear exam unremarkable EYES: PERRL, EOMI NECK: Full ROM, no LEIGH, no menigismus CHEST/RESP: Nontender, clear to auscultation bilateral, no wheeze/rhonchi/rales CARDIOVASCULAR: RRR, no murmur, rub francine. 2+ Rad pulse bilateral EXT: Full ROM, no edema, no rash Neuro: Grossly normal neurologic exam, conversant, interactive. Psych: Speech fluent, thoughts congruent, affect normal Course Vital Signs Vital signs: Vital Signs Temperature 37.4 C 06/22/22 11:24 Pulse 82 06/22/22 11:24 Respiratory Rate 16 06/22/22 11:24 Blood Pressure 101/61 06/22/22 11:24 Pulse Oximetry 99 06/22/22 11:24 Temperature 37.4 C 06/22/22 11:24 Temperature Source Temporal Artery Scan 06/22/22 11:24 Pulse 82 06/22/22 11:24 Respiratory Rate 16 06/22/22 11:30 Respiratory Effort Non-Labored 06/22/22 11:30 Respiratory Depth Normal 06/22/22 11:30 Respiratory Pattern Normal 06/22/22 11:30 Blood Pressure 101/61 06/22/22 11:24 Blood Pressure Position Sitting 06/22/22 11:24 Pulse Oximetry 99 06/22/22 11:24 Oxygen Delivery Method Room Air 06/22/22 11:24 Oxygen Flow Rate 0 06/22/22 11:24 PAWSS Have you Been Recently Intoxicated or Drunk Within the Last 30 days?: No Have you Ever Experienced Previous Episodes of Alcohol Withdrawal?: No Have you ever Experienced Withdrawal Seizures?: No Have you ever Experienced Delirium Tremens(DT)s?: No Have you ever undergone Alcohol Rehabilitation Treatment (i.e, inpt ot outpatient treatment programs)?: No Have you ever Experienced Blackouts?: No Have you ever Combined Alcohol with other Downers within the last 90 days?: No Have you ever Combined Alcohol with any other Substance of Abuse during the last 90 days?: No Positive Blood Alcohol level on Presentation? [PCS.BAL]: No Evidence of Increased Autonomic Activity (i.e. HR>120, tremor, sweating, agitation, nausea)?: No Result: 0
== END 2022-06-22 12:19 | disposition home or self-care (01) ==
PROVIDERS: Emergency Provider Emergency Medicine; PCP Nurse Practitioner Family
DX: J01.80 Other acute sinusitis (principal)
CPT/HCPCS: 99283

== ENCOUNTER 2022-07-30 17:21 | Emergency (ER) | payer SELFPAY ==
[2022-07-30 17:36] VITALS: BP 136/77; PULSE 71; RESP 18; TEMP 36.7; O2SAT 96
--- NOTE | 2022-07-30 17:55 | ED.GENADUL_ITS ---
Discharge Plan Disposition Patient Disposition: Home Condition: Improving Discharge Details Clinical Impression: Odontalgia Primary Care Provider: Florinda Green ED Provider: Hans Escobedo Home Meds and New Rx's Prescriptions: New clindamycin HCl 300 mg capsule 300 mg PO Q6H 9 Days Qty: 36 0RF Continued ibuprofen 600 mg tablet 600 mg PO QID PRNQty: 40 0RF Discharge Instructions Instructions: Toothache (ED) Additional Instructions: Home to rest this evening. Warm, salt water gargles to assist healing. Take antibiotics as prescribed. May use Tylenol and/or ibuprofen as needed for pain. Please follow-up with dentistry for recheck. Return for any acute concern. Medical Decision Making 37-year-old male with recurrence of odontalgia. He was last seen in the ER in May of this year. Now improved recurrence of apical infection had a right lower bicuspid. No abscess that is amenable to drainage. We will place him on oral antibiotics. We will follow-up with dentistry. He is stable for discharge to home. HPI General Mode of arrival: ambulatory . Date/Time Provider Initiated Documentation: 07/30/22 17:43 . Limitations to Documentation: no limitations . Information obtained by: patient . History of Present Illness 37 year old M presents to the emergency department with the chief complaint of Right lower dental pain, described as moderate, Quality is described as dull and constant, and is localized to the mouth and right. Patient reports no radiation. Patient started experiencing this day(s) and it has been constant. No relieving factors improve symptom(s), No exacerbating factors reported . Patient notes denies cough, fever/chills and weakness. Patient did receive the following treatments prior to arrival, none Related Data Home Medications Medication Instructions Recorded Confirmed clindamycin HCl 300 mg capsule 300 mg PO Q6H 9 days #36 caps 07/30/22 ibuprofen 600 mg tablet 600 mg PO QID PRN #40 tabs 07/30/22 Previous Rx's Medication Instructions Recorded clindamycin HCl 300 mg capsule 300 mg PO Q6H 9 days #36 caps 07/30/22 ibuprofen 600 mg tablet 600 mg PO QID PRN #40 tabs 07/30/22 Allergies Allergy/AdvReac Type Severity Reaction Status Date / Time amoxicillin Allergy Swelling/Ed Unverified 06/22/22 11:26 aimee General Stated Complaint: DentalOral STEPHEN: 5 Review of Systems Narrative: Change to voice, no drooling, no. Periods. Otherwise well. 6 systems reviewed PFSH All Active Problems (Updated 07/30/22 @ 17:57 by Hans Escobedo MD) Dysuria (Acute) Discharge from penis without blood (Acute) Discharge from penis (Acute) Dental infection (Acute) Odontalgia (Acute) Social History Smoking/Tobacco Use Status: Never Smoking risk assessment performed?: Yes Alcohol Intake: current Alcohol Intake frequency: a few times a week Drug use: Never Substance use type: does not use Do you feel safe at home: Yes Do you feel safe in your relationship?: Yes Exam Narrative Exam Narrative: GEN: awake, alert, oriented 3. Pleasant, well groomed, interactive. HEAD: Normocephalic, atraumatic ENT: Mucous membranes moist, oropharynx with numerous dental caries, tenderness of the right lower bicuspids, no significant buccal or lingual fluctuance appreciated., External ear exam unremarkable EYES: PERRL, EOMI NECK: Full ROM, no LEIGH, no menigismus CHEST/RESP: No respiratory distress EXT: Full ROM, no edema, no rash Neuro: Grossly normal neurologic exam, conversant, interactive. Psych: Speech fluent, thoughts congruent, affect normal Course Vital Signs Vital signs: Vital Signs Temperature 36.7 C 07/30/22 17:36 Pulse 71 07/30/22 17:36 Respiratory Rate 18 07/30/22 17:36 Blood Pressure 136/77 07/30/22 17:36 Pulse Oximetry 96 07/30/22 17:36 Temperature 36.7 C 07/30/22 17:36 Temperature Source Oral 07/30/22 17:36 Pulse 71 07/30/22 17:36 Respiratory Rate 18 07/30/22 17:36 Respiratory Effort 07/30/22 17:40 Blood Pressure 136/77 07/30/22 17:36 Blood Pressure Position Sitting 07/30/22 17:36 Pulse Oximetry 96 07/30/22 17:36 Oxygen Delivery Method Room Air 07/30/22 17:36 Oxygen Flow Rate 0 07/30/22 17:36 Pain Level 7 07/30/22 17:36 Comment 07/30/22 17:36
== END 2022-07-30 18:43 | disposition home or self-care (01) ==
PROVIDERS: Emergency Provider Emergency Medicine; PCP Nurse Practitioner Family
DX: K08.89 Other specified disorders of teeth and supporting structures (principal)
CPT/HCPCS: 99283; 99284

== ENCOUNTER 2023-06-29 18:10 | Emergency (ER) | payer SELFPAY ==
[2023-06-29 18:20] VITALS: BP 105/72; PULSE 82; RESP 15; TEMP 36.6; O2SAT 99
--- NOTE | 2023-06-29 19:16 | ED.GENADUL_ITS ---
Discharge Plan Disposition Patient Disposition: Home Discharge Details Clinical Impression: Urethritis Primary Care Provider: Florinda Green ED Provider: Daniel Walsh Home Meds and New Rx's Prescriptions: New doxycycline hyclate 100 mg capsule 100 mg PO BID Qty: 13 0RF No Action No Known Home Meds Discharge Instructions Instructions: Sexually Transmitted Diseases (ED) Additional Instructions: We have treated you empirically for a sexually transmitted infection. Please take antibiotic as prescribed and for the full course of treatment. It is very important that you follow-up with your primary care provider for full testing as there are additional possibilities that could cause your your symptoms. It is very important that you get repeat testing in the next couple months to confirm for treatment of your symptoms. Referrals: Florinda Green [Primary Care Provider] - Discharge Data Discharge Date/Time-TO BE ENTERED AT DEPARTURE: 06/29/23 19:50 Medical Decision Making Patient presenting to the emergency department for chief complaint of penile discharge, burning with urination and ejaculation and that symptoms started yesterday. Patient does report new sexual partner over the past couple weeks and has had sex without protection. Patient states history of gonorrhea and chlamydia and states similar symptoms in the past. Patient denies any systemic symptoms. Patient denies any penile lesions or sores rashes or other abnormalities. Patient deferred genital exam and otherwise is nontoxic and well in appearance with no other complaints. Did order urinalysis and GC chlamydia but patient was unable to give sample. Did inform patient that I was concerned for such sexually-transmitted infection. Due to significant delay and waiting for patient to give sample we did go ahead and treat patient empirically with doxycycline and IM Rocephin. Did inform patient that there was other potential causes and that he may need more testing especially if his symptoms did not improve. Patient was encouraged to follow-up with local urgent care or other outpatient sources for further testing and also encouraged to be retested to confirm resolution of infection. After discussion of diagnosis and plan of care patient has no further needs, questions, or concerns and states clear understanding to return to the emergency department for any worsening symptoms. This documentation was generated using [employer] system, please disregard any oddities of phrase or misspellings. Lab Data Lab results reviewed: Yes I reviewed the patient's lab results. HPI General Mode of arrival: ambulatory . Date/Time Provider Initiated Documentation: 06/29/23 18:29 . Limitations to Documentation: no limitations . Information obtained by: patient and RN notes reviewed . History of Present Illness 38 year old M presents to the emergency department with the chief complaint of Burning with urination, penile discharge, described as moderate and similar to prior episodes, Patient started experiencing this day(s) (1) and it has been constant. No relieving factors improve symptom(s), Patient notes no other symptoms.. Patient did receive the following treatments prior to arrival, none Related Data Home Medications Medication Instructions Recorded Confirmed Unknown [No Known Home Meds] 06/29/23 06/29/23 doxycycline hyclate 100 mg capsule 100 mg PO BID #13 caps 06/29/23 Previous Rx's Medication Instructions Recorded doxycycline hyclate 100 mg capsule 100 mg PO BID #13 caps 06/29/23 Allergies Allergy/AdvReac Type Severity Reaction Status Date / Time amoxicillin Allergy Swelling/Ed Unverified 06/29/23 18:23 aimee General Stated Complaint: Urinary STEPHEN: 4 Review of Systems Constitutional Constitutional: Denies body ache(s), Denies chills, Denies fever(s) and Denies malaise Gastrointestinal Gastrointestinal: Denies abdominal pain, Denies nausea and Denies vomiting Genitourinary Genitourinary: Reports as per HPI, Denies hematuria, Reports difficulty urinating, Denies genital lesions, Denies genital pain, Reports dysuria, Denies flank pain, Reports painful ejaculations, Reports penile discharge and Reports urinary urgency Integumentary/Breasts Skin/Breast: Denies erythema and Denies rash PFSH All Active Problems (Updated 06/29/23 @ 19:18 by Daniel Walsh NP) Urethritis (Acute) Dental infection (Acute) Discharge from penis (Acute) Discharge from penis without blood (Acute) Dysuria (Acute) Social History Smoking/Tobacco Use Status: Never Smoking risk assessment performed?: Yes Alcohol Intake: current Alcohol Intake frequency: a few times a week Drug use: Never Substance use type: does not use Do you feel safe at home: Yes Do you feel safe in your relationship?: Yes Exam Const General: cooperative, no acute distress and not ill appearing Orientation: alert, awake and oriented x3 HENMT Mouth: moist mucous membranes Resp Effort & Inspection: normal respiratory effort, able to speak in complete sentences and no respiratory distress General: deferred Neuro General: patient alert, patient awake, patient oriented x3 and moves all extremities Course Vital Signs Vital signs: Vital Signs Temperature 36.6 C 06/29/23 18:20 Pulse 82 06/29/23 18:20 Respiratory Rate 15 06/29/23 18:20 Blood Pressure 105/72 06/29/23 18:20 Pulse Oximetry 99 06/29/23 18:20 Temperature 36.6 C 06/29/23 18:20 Pulse 82 06/29/23 18:20 Respiratory Rate 15 06/29/23 18:20 Respiratory Effort Normal 06/29/23 18:22 Blood Pressure 105/72 06/29/23 18:20 Blood Pressure Position Sitting 06/29/23 18:20 Pulse Oximetry 99 06/29/23 18:20 Oxygen Delivery Method Room Air 06/29/23 18:20 Oxygen Flow Rate 0 06/29/23 18:20 Pain Level 6 06/29/23 18:20 PAWSS Have you Been Recently Intoxicated or Drunk Within the Last 30 days?: No Have you Ever Experienced Previous Episodes of Alcohol Withdrawal?: No Have you ever Experienced Withdrawal Seizures?: No Have you ever Experienced Delirium Tremens(DT)s?: No Have you ever undergone Alcohol Rehabilitation Treatment (i.e, inpt ot outpatient treatment programs)?: No Have you ever Experienced Blackouts?: No Have you ever Combined Alcohol with other Downers within the last 90 days?: No Have you ever Combined Alcohol with any other Substance of Abuse during the last 90 days?: No Result: 0
[2023-06-29] MEDS: cefTRIAXone 1 GM VIAL 0.5 GM IM (19:44)
[2023-06-29] MEDS: Doxycycline Hyclate 100 MG CAP PO (19:45)
== END 2023-06-29 19:50 | disposition home or self-care (01) ==
LOC: ER 19:28
PROVIDERS: Emergency Provider Nurse Practitioner Family; PCP Nurse Practitioner Family
DX: N34.2 Other urethritis (principal)
CPT/HCPCS: 99283; 99282; J0696

== ENCOUNTER 2024-03-22 18:13 | Emergency (ER) | payer OTHER, SELFPAY ==
[2024-03-22 18:25] VITALS: BP 110/72; PULSE 68; RESP 12; TEMP 36.9; O2SAT 100
[2024-03-22] MEDS: Benzocaine 20% Gel 30 GM JAR MM (19:04)
[2024-03-22] MEDS: Clindamycin 150 MG CAP, 12 CAPS/BTL 450 MG PO (19:37)
--- NOTE | 2024-03-22 22:36 | ED.GENADUL_ITS ---
Discharge Plan Disposition Patient Disposition: Home Condition: Stable Discharge Details Clinical Impression: Abscess, dental Primary Care Provider: Florinda Green ED Provider: Lorena Silva Home Meds and New Rx's Prescriptions: New clindamycin HCl 150 mg capsule 450 mg PO TID 7 Days Qty: 63 0RF Discharge Instructions Instructions: Tooth Abscess ED Additional Instructions: Gargle with warm salt water several times daily Take antibiotic as prescribed for 10 days Oxycodone prescription, use this very sparingly, do not use if you need to drive within 8 hours to Medication Motrin and Tylenol as needed for discomfort Call dentist in the morning and return here should you have new or worsening complaints Referrals: Florinda Green [Primary Care Provider] - HPI General Date/Time Provider Initiated Documentation: 03/22/24 18:29 . HPI Narrative: This 38-year-old male who is otherwise healthy presents with upper dental pain. States it started several days ago and he now has a small lump above his right upper tooth. He denies fever or chills. denies difficulty swallowing. Related Data Home Medications ?Medication ?Instructions ?Recorded ?Confirmed clindamycin HCl 150 mg capsule 450 mg (3 x 150 mg) PO TID 7 days 03/22/24 #63 caps Previous Rx's ?Medication ?Instructions ?Recorded clindamycin HCl 150 mg capsule 450 mg (3 x 150 mg) PO TID 7 days 03/22/24 #63 caps Allergies Allergy/AdvReac Type Severity Reaction Status Date / Time amoxicillin Allergy Swelling/Ed Unverified 03/22/24 18:30 aimee General Stated Complaint: DentalOral STEPHEN: 4 Exam Narrative Exam Narrative: abscess noted to #8. uvula midline, oropharynx patent. maintaining secretions, no trismus Course Vital Signs Vital signs: Vital Signs Temperature 36.9 C 03/22/24 18:25 Pulse 68 03/22/24 18:25 Respiratory Rate 12 03/22/24 18:25 Blood Pressure 110/72 03/22/24 18:25 Pulse Oximetry 100 03/22/24 18:25 Temperature 36.9 C 03/22/24 18:25 Temperature Source Oral 03/22/24 18:25 Pulse 68 03/22/24 18:25 Respiratory Rate 12 03/22/24 18:25 Respiratory Effort Normal, Non-Labored 03/22/24 18:27 Blood Pressure 110/72 03/22/24 18:25 Blood Pressure Position Sitting 03/22/24 18:25 Pulse Oximetry 100 03/22/24 18:25 Oxygen Delivery Method Room Air 03/22/24 18:25 Oxygen Flow Rate 0 03/22/24 18:25 Pain Level 6 03/22/24 18:29 Medical Decision Making 38 yo male presenting with dental abscess. hurricaine gel applied and 18 g used to aspirate, blood noted. clindamycin initiated. encouraged to f/u with dentist tomorrow. return precautions reviewed and pt expressed understanding. Quality:SDOH Health Related Social Needs: No Data to Display PFSH All Active Problems (Updated 03/22/24 @ 19:25 by DELPHINE Baker) Abscess, dental (Acute) Dental infection (Acute) Discharge from penis (Acute) Discharge from penis without blood (Acute) Dysuria (Acute) Social History Smoking/Tobacco Use Status: Never Smoking risk assessment performed?: Yes Alcohol Intake: current Alcohol Intake frequency: a few times a week Drug use: Never Substance use type: does not use Housing: apartment Do you feel safe at home: Yes Do you feel safe in your relationship?: Yes PAWSS Have you Been Recently Intoxicated or Drunk Within the Last 30 days?: No Have you Ever Experienced Previous Episodes of Alcohol Withdrawal?: No Have you ever Experienced Withdrawal Seizures?: No Have you ever Experienced Delirium Tremens(DT)s?: No Have you ever undergone Alcohol Rehabilitation Treatment (i.e, inpt ot outpatient treatment programs)?: No Have you ever Experienced Blackouts?: No Have you ever Combined Alcohol with other Downers within the last 90 days?: No Have you ever Combined Alcohol with any other Substance of Abuse during the last 90 days?: No Positive Blood Alcohol level on Presentation? [PCS.BAL]: No Evidence of Increased Autonomic Activity (i.e. HR>120, tremor, sweating, agitation, nausea)?: No Result: 0
== END 2024-03-22 19:39 | disposition home or self-care (01) ==
LOC: ER 21:03
PROVIDERS: Emergency Provider Physician Assistant; PCP Nurse Practitioner Family
DX: K04.7 Periapical abscess without sinus (principal)
CPT/HCPCS: 10160; 99283

== ENCOUNTER 2025-02-22 18:26 | Emergency (ER) | payer OTHER, SELFPAY ==
[2025-02-22 18:36] VITALS: BP 128/82; PULSE 73; RESP 20; TEMP 36.9; O2SAT 98
--- NOTE | 2025-02-22 20:01 | ED.GENADUL_ITS ---
Discharge Plan Disposition Patient Disposition: Home Condition: Stable Discharge Details Clinical Impression: Folliculitis Primary Care Provider: Florinda Green ED Provider: Mily Holcomb Home Meds and New Rx's Prescriptions: No Action No Known Home Meds Discharge Instructions Instructions: Skin Rash ED Additional Instructions: You were seen in the emergency department initially for evaluation of a rash on your groin. This rash was evaluated, and does appear consistent with mild inflammation of the skin follicles. The skin in that area is very sensitive and I do recommend using an unscented, gentle soap in that area. You made our triage nurse aware of some other concerns for complaints such as abdominal pain, and at this time have elected to follow-up with your primary care provider in the outpatient environment. You are always welcome to return to the emergency department for reevaluation, especially if the symptoms return, worsen, or you have any concerning symptoms like fever, nausea or vomiting that prevents you from eating or drinking, etc. Please follow-up with your primary care provider in the next few days to discuss this visit and any symptoms that change, worsen, or persist. Thank you for allowing us to be part of your care. Discharge Data Discharge Date/Time-TO BE ENTERED AT DEPARTURE: 02/22/25 20:10 HPI General Mode of arrival: ambulatory . Date/Time Provider Initiated Documentation: 02/22/25 18:44 . Limitations to Documentation: no limitations . Information obtained by: patient and old records reviewed . HPI Narrative: This is a 39-year-old male patient without significant past medical history presenting for a pubic rash. I was requested to see this patient in the triage room given a higher than average ED patient volume and extended wait times. The patient consented to this exam in an atypical treatment area. The patient states that he has had a discolored rash on his pubic region for almost a year, at least several months. He notes some redness, states that it is not itchy or painful. He has not put any creams or ointments on it, states that he uses old spice body wash. The patient reports no associated penile discharge, is not experiencing testicular pain or abdominal pain at this time. No rashes anywhere else on his body. Related Data Home Medications ?Medication ?Instructions ?Recorded ?Confirmed Unknown [No Known Home Meds] 02/22/25 0 02/22/25 Allergies Allergy/AdvReac Type Severity Reaction Status Date / Time amoxicillin Allergy Swelling/Ed Verified 02/22/25 18:36 aimee General Stated Complaint: RashLesion STEPHEN: 4 Exam Narrative Exam Narrative: Gen: Awake and alert, in no apparent distress HEENT: Non-icteric sclera Neck: Supple Lungs: No apparent respiratory distress, normal respiratory effort. CV: Appears well perfused Abdomen: Non-distended, soft : Genital examination supervised by ADAM Haines, normal external male genitalia MSK: Moves 4 extremities without apparent limitation in ROM Skin: The skin overlying the mons pubis has very slight redness that seems to be associated with the hair follicles. I note no purulence or swelling, induration, or warmth. There is no skin flaking or blistering. Neuro: Normal Gait, no obvious focal deficits or facial asymmetry. Speaks in full, clear sentences. Psych: Appropriate for situation. Course Vital Signs Vital signs: Vital Signs Temperature 36.9 C 02/22/25 18:36 Pulse 73 02/22/25 18:36 Respiratory Rate 20 02/22/25 18:36 Blood Pressure 128/82 02/22/25 18:36 Pulse Oximetry 98 02/22/25 18:36 Temperature 36.9 C 02/22/25 18:36 Temperature Source Oral 02/22/25 18:36 Pulse 73 02/22/25 18:36 Respiratory Rate 20 02/22/25 18:36 Blood Pressure 128/82 02/22/25 18:36 Blood Pressure Position Sitting 02/22/25 18:36 Pulse Oximetry 98 02/22/25 18:36 Oxygen Delivery Method Room Air 02/22/25 18:36 Oxygen Flow Rate 0 02/22/25 18:36 Medical Decision Making This is a 39-year-old male patient presenting for evaluation of a skin rash. My differential includes but is not limited to folliculitis, considered dermatitis including contact and atopic. Considered sensitivity/reaction to soaps and detergents. The patient's exam is less concerning for STI and he does not endorse any skin concerns from any of his sexual partners. He is not experiencing dysuria or flank pain to suggest UTI, nor penile discharge to suggest STI. Exam is less consistent with herpes zoster, tinea corporis. Given the duration of the symptoms, the lack of pain or itching, and the otherwise reassuring history and exam I am most suspicious for early/mild folliculitis versus contact dermatitis. I did skilled nursing facility counselor the patient that old spice body wash is heavily fragranced, and may be causing irritation. I recommended that he switch to a gentle/sensitive skin unscented soap, and follow-up with his primary care provider for reassessment. I do not see an indication at this time to proceed with steroid or antifungal therapy nor oral antibiotics. After discussion with the patient about his symptoms today and my recommendations, it was determined that the patient was appropriate for discharge as he is hemodynamically appropriate, ambulatory, tolerating p.o., and able to follow-up with his primary care provider for this complaint. While preparing discharge paperwork I was contacted by the triage nurse, who states that the patient had some chronic concerns that he had not brought up during the interview, including intermittent abdominal pain and nausea. I recommended to the triage nurse and the patient that if he had additional symptoms beyond those that were divulged to this doctor that he could be evaluated in a patient room more thoroughly. The patient states that he does not want to wait for this evaluation, and did reaffirm to the triage nurse that he is at this time not experiencing any of the symptoms. We reinforced outpatient primary care follow- up and the patient left our facility without incident. Mily Holcomb MD [facility] All Active Problems (Updated 02/22/25 @ 20:04 by Mily Holcomb MD) Folliculitis (Acute) Dental infection (Acute) Discharge from penis (Acute) Discharge from penis without blood (Acute) Dysuria (Acute) Social History Smoking/Tobacco Use Status: Never Smoking risk assessment performed?: Yes Alcohol Intake: current Alcohol Intake frequency: a few times a month Alcohol type: hard liquor Drug use: Never Substance use type: does not use Housing: apartment Do you feel safe at home: Yes Do you feel safe in your relationship?: Yes PAWSS Have you Been Recently Intoxicated or Drunk Within the Last 30 days?: No Have you Ever Experienced Previous Episodes of Alcohol Withdrawal?: No Have you ever Experienced Withdrawal Seizures?: No Have you ever Experienced Delirium Tremens(DT)s?: No Have you ever undergone Alcohol Rehabilitation Treatment (i.e, inpt ot outpatient treatment programs)?: No Have you ever Experienced Blackouts?: No Have you ever Combined Alcohol with other Downers within the last 90 days?: No Have you ever Combined Alcohol with any other Substance of Abuse during the last 90 days?: No Positive Blood Alcohol level on Presentation? [PCS.BAL]: No Evidence of Increased Autonomic Activity (i.e. HR>120, tremor, sweating, agitation, nausea)?: No Result: 0
== END 2025-02-22 20:10 | disposition home or self-care (01) ==
PROVIDERS: Emergency Provider Emergency Medicine; PCP Nurse Practitioner Family
DX: L73.9 Follicular disorder, unspecified (principal)
CPT/HCPCS: 99282 ×2

== ENCOUNTER 2025-03-14 17:52 | Emergency (ER) | payer OTHER, SELFPAY ==
[2025-03-14 17:56] VITALS: BP 128/81; PULSE 65; RESP 12; TEMP 36.9; O2SAT 98
--- NOTE | 2025-03-14 18:35 | W.ED.GENAD ---
Discharge Plan Disposition Patient Disposition: Home Condition: Stable Discharge Details Clinical Impression: Dental infection, Broken tooth Primary Care Provider: Florinda Green ED Provider: Marie Tidwell Home Meds and New Rx's Prescriptions: New clindamycin HCl 150 mg capsule 300 mg PO BID 10 Days Qty: 40 0RF Rx Instructions: Take 2 capsules by mouth twice daily for the next 10 days Discharge Instructions Instructions: Fractured Tooth (DC), Dental Pain ED Additional Instructions: You do need to see a dentist within the next 1 to 2 weeks. Please call tomorrow to make an appointment. You are placed on clindamycin to treat empirically or prevent infection. Please rinse your mouth out after eating or drinking anything. If you smoke please consider quitting smoking. Soft to liquid diet. Practice good oral hygiene brush your teeth twice daily even if it hurts. Use the HurriCaine gel topical benzocaine up to 3 times daily as directed. Please take the antibiotics as directed with yogurt or probiotic every day. Please take Tylenol or Ibuprofen with food every 4-6 hours as needed for pain and swelling. Follow up with primary care provider in 3-5 days. Return to ED sooner if any worsening or concerns. Thank you for allowing us to care for you today. Referrals: dentist [Other] [facility] [Provider Group] Referral Note: ER follow up call for an appointment Clinical Impression: Dental infection; Broken tooth Discharge Data Discharge Date/Time-TO BE ENTERED AT DEPARTURE: 03/14/25 19:05 HPI General Mode of arrival: ambulatory. Date/Time Provider Initiated Documentation: 03/14/25 18:05. Limitations to Documentation: no limitations. Information obtained by: patient, RN notes reviewed and old records reviewed. HPI Narrative: 39-year-old male presents to the ER with a chief complaint of right upper dental pain for the last 5 days. He reports that he has had a broken tooth #5 for a year. He has been taking Tylenol ibuprofen last ibuprofen 800 mg this morning has been able to deal with it but now it is not helping. He does have some receding gums around the area, he does have a broken tooth all the way down to the dentin, he reports constant pain. There is no area of fluctuance no drainage no area of abscess at this time. Related Data Home Medications ?Medication ?Instructions ?Recorded ?Confirmed clindamycin HCl 150 mg capsule 300 mg (2 x 150 mg) PO BID Dental 03/14/25 infection 10 days #40 caps Previous Rx's ?Medication ?Instructions ?Recorded clindamycin HCl 150 mg capsule 300 mg (2 x 150 mg) PO BID Dental 03/14/25 infection 10 days #40 caps Allergies Allergy/AdvReac Type Severity Reaction Status Date / Time amoxicillin Allergy Swelling/Ed Verified 03/14/25 18:03 aimee General Stated Complaint: DentalOral STEPHEN: 4 Review of Systems All systems reviewed & are unremarkable except as noted in HPI and below Constitutional Constitutional: Denies headache(s) ENT Ears, Nose, Mouth, and Throat: Reports as per HPI, Reports dental pain, Denies headache(s), Denies sinus pain and Denies throat swelling Neurologic Neurologic: Denies headache(s) Allergic/Immunologic Allergic/Immunologic: Denies throat swelling Exam HENLA Head: normal to inspection Face and sinus: normal facial exam, sinuses nontender, face symmetric and no sinus tenderness Mouth: oral mucosae normal, lip normal, tongue normal and salivary ducts normal Teeth and gingiva: caries (5.) and poor dentition Teeth image:  1. Broken tooth all the way down to exposed dentin, no drainage or abscess or area of fluctuance. Multiple other dental caries noted. Throat: posterior oropharynx normal, tonsils normal and uvula midline Neck Neck: normal visual inspection and full ROM Lymphatic: no lymphadenopathy noted Resp Effort & Inspection: normal respiratory effort Course Vital Signs Vital signs: Vital Signs Temperature 36.9 C 03/14/25 17:56 Pulse 65 03/14/25 17:56 Respiratory Rate 12 03/14/25 17:56 Blood Pressure 128/81 03/14/25 17:56 Pulse Oximetry 98 03/14/25 17:56 Temperature 36.9 C 03/14/25 17:56 Temperature Source Oral 03/14/25 17:56 Pulse 65 03/14/25 17:56 Respiratory Rate 12 03/14/25 17:56 Blood Pressure 128/81 03/14/25 17:56 Blood Pressure Position Sitting 03/14/25 17:56 Pulse Oximetry 98 03/14/25 17:56 Oxygen Delivery Method Room Air 03/14/25 17:56 Oxygen Flow Rate 0 03/14/25 17:56 Medical Decision Making 39-year-old male presents to the ER with a chief complaint of right upper dental pain for the last 5 days. He reports that he has had a broken tooth #5 for a year. He has been taking Tylenol ibuprofen last ibuprofen 800 mg this morning has been able to deal with it but now it is not helping. He does have some receding gums around the area, he does have a broken tooth all the way down to the dentin, he reports constant pain. There is no area of fluctuance no drainage no area of abscess at this time. I did recommend that he does get into a dentist call for an appointment within the next week. Will give him dental resources. Topical HurriCaine gel, clindamycin 450 mg PO, 600 mg ibuprofen and we will start him on clindamycin. First dose was given here and to go tablets. This text was generated using Dialsation system, please disregard any oddities of phrase or misspellings. PFSH All Active Problems (Updated 03/14/25 @ 18:38 by Marie Tidwell NP) Broken tooth (Acute) Folliculitis (Acute) Dental infection (Acute) Discharge from penis (Acute) Discharge from penis without blood (Acute) Dysuria (Acute) Social History Smoking/Tobacco Use Status: Never Smoking risk assessment performed?: Yes Alcohol Intake: current Alcohol Intake frequency: a few times a month Alcohol type: hard liquor Drug use: Never Substance use type: does not use Housing: apartment Do you feel safe at home: Yes Do you feel safe in your relationship?: Yes
[2025-03-14] MEDS: Benzocaine 20% Gel 30 GM JAR MM (18:53)
[2025-03-14] MEDS: Clindamycin 150 MG CAP, 12 CAPS/BTL 450 MG PO (18:53)
[2025-03-14] MEDS: Ibuprofen 600 MG TAB PO (18:55)
[2025-03-14] MEDS: Clindamycin 150 MG CAP 450 MG PO (18:55)
== END 2025-03-14 19:05 | disposition home or self-care (01) ==
PROVIDERS: Emergency Provider Registered Nurse Emergency; PCP Nurse Practitioner Family
DX: K04.7 Periapical abscess without sinus (principal); S02.5XXA Fracture of tooth (traumatic), initial encounter for closed fracture; X58.XXXA Exposure to other specified factors, initial encounter
CPT/HCPCS: 99283 ×2

== ENCOUNTER 2025-03-31 19:40 | Emergency (ER) | payer OTHER, SELFPAY ==
[2025-03-31] VITALS (11 sets, daily range): BP systolic 119–150; BP diastolic 74–114; PULSE 68–94; RESP 14–19; TEMP 36.6; O2SAT 97–100
--- NOTE | 2025-03-31 19:30 | RT.EKG_ITS ---
APPROVED REPORT Exam: Resting ECG Reason for Exam: Chest pain Patient Location: E HR:85 bpm ECG Measurements Heart Rate 85 AXIS AL 139 P 48 QRSd 92 QRS 78 QT 358 T 35 QTc 427 Conclusion Sinus rhythm...normal P axis, V-rate 60- [address] segment or T wave abnormalities to suggest occlusive VT
--- NOTE | 2025-03-31 19:48 | ED.GENADUL_ITS ---
Discharge Plan Disposition Patient Disposition: Home Condition: Stable Discharge Details Clinical Impression: Chest pain of uncertain etiology Primary Care Provider: Florinda Green ED Provider: Miguel A Hobson Discharge Instructions Instructions: Costochondritis, Chest Pain, Adult ED Additional Instructions: You were seen in the emergency department for your chest pain that lasted only briefly, your cardiac enzymes are negative, your EKG is reassuring that this has nothing to do with your heart. Your chest x-ray shows no pathology of any kind, you likely have musculoskeletal chest pain in between the ribs called costochondritis, please take regular dose of Tylenol and ibuprofen when this happens, you may apply gentle heat to the area, please return to the emergency department for any emergent concerns including chest pain especially with d izziness, sweating, shortness of breath, chest pain that comes on with physical activity. Referrals: Florinda Green [Primary Care Provider, Medicine] Discharge Data Discharge Date/Time-TO BE ENTERED AT DEPARTURE: 03/31/25 22:12 HPI General Date/Time Provider Initiated Documentation: 03/31/25 19:42 . HPI Narrative: 39 year-old male presents to ED today by POV/ambulating with a chief complaint of chest pain after eating cereal 15 minutes ago, that resolved. Quality described as pain in the L breast/ribs area while laying down at onset, no radiation to shortness of breath, nausea/vomiting, weakness, near syncope, cough. Severity is described as 6/10. Palliating factors include nothing specific attempted. Provoking factors include nothing specific. Events leading up to the incident/Associated Symptoms: Patient has no family history of cardiac disease in 30s. Patient not anticoagulated. Related Data Allergies Allergy/AdvReac Type Severity Reaction Status Date / Time amoxicillin Allergy Swelling/Ed Verified 03/14/25 18:03 aimee General Stated Complaint: Chest Pain STEPHEN: 3 Review of Systems All systems reviewed & are unremarkable except as noted in HPI and below Exam Narrative Exam Narrative: GENERAL APPEARANCE: Well-nourished, non-toxic, awake and alert, atraumatic, no acute distress. SKIN: Warm, pink, dry, intact, without rashes/lesions/ulcerations. HEAD: Normocephalic, atraumatic, normal hair distribution for gender/age. EYES: Normal conjunctiva, no exudates on lids/lashes. ENT: Nares patent, no circumoral cyanosis, no facial swelling NECK: Supple, trachea midline, painless cervical ROM. LUNGS/CHEST: Lungs CTA bilaterally, non-labored respirations, normal A/P diameter, symmetrical expansion, no chest wall deformity, mild L chest wall tenderness to intercostals HEART (CV/PV): Regular rate and rhythm without murmur, no peripheral edema, no JVD. ABDOMEN: Soft, non-distended, no guarding. MSK: Normal ROM, no swelling/deformity to bilateral UEs or LEs, moving all extremities without weakness, no cyanosis, spine midline without tenderness, normal curvature. NEURO: Mental Status AAOx4 - alert to person, place, time, events No facial droop, no forehead involvement. Motor: No focal weakness - strength 5/5 in bilateral UEs and LEs, proximal and distal, symmetric. Sensory: sensation intact to light touch globally. Gait normal: patient ambulated without ataxia into ED room. PSYCH: euthymic, cooperative, pleasant, appropriate speech Course Vital Signs Vital signs: Vital Signs Temperature 36.6 C 03/31/25 19:43 Pulse 86 03/31/25 19:43 Respiratory Rate 16 03/31/25 19:43 Blood Pressure 150/90 H 03/31/25 19:43 Pulse Oximetry 97 03/31/25 19:43 Temperature 36.6 C 03/31/25 19:43 Temperature Source Oral 03/31/25 19:43 Pulse 86 03/31/25 19:43 Respiratory Rate 16 03/31/25 19:43 Blood Pressure 150/90 H 03/31/25 19:43 Blood Pressure Position Sitting 03/31/25 19:43 Pulse Oximetry 97 03/31/25 19:43 Oxygen Delivery Method Room Air 03/31/25 19:43 Oxygen Flow Rate 0 03/31/25 19:43 Pain Level 6 03/31/25 19:43 Medical Decision Making This dictation utilizes [id number] dictation software and may contain unedited grammatical errors. 39 year-old male presents to ED today by POV/ambulating with a chief complaint of chest pain after eating cereal 15 minutes ago, that resolved. Quality described as pain in the L breast/ribs area while laying down at onset, no radiation to shortness of breath, nausea/vomiting, weakness, near syncope, cough. Severity is described as 6/10. Palliating factors include nothing specific attempted. Provoking factors include nothing specific. Events leading up to the incident/Associated Symptoms: Patient has no family history of cardiac disease in 30s. Patients' medical history: Noncontributory. Family and social history: Noncontributory. Pertinent exam findings / vital signs include left-sided chest tenderness in the intercostals, lungs CTA, nontoxic and afebrile. Differential / pathologies of concern include unlikely ACS likely costochondri tis or anxiety. Diagnostic studies of: - CBC, CMP, magnesium, serial troponins, lipase, TSH, UA, x-ray chest, EKG. - CBC is unremarkable - CMP is unremarkable with mildly low potassium at 3.4 would replete with normal p.o. intake - Serial troponins negative - Lipase negative - TSH within normal limits - UA is benign - X-ray chest benign - EKG shows normal sinus rhythm, no ischemic changes Interventions of: - None, heart score low. ED Course/Assessment/Plan: 39-year-old male presents with left-sided chest pain for 15 minutes has high anxiety over this condition without any risk factors or family history of early onset cardiac disease, cardiac workup is completely negative counseled the patient on likely costochondritis, x-ray chest clear recommend Tylenol and ibuprofen and gentle heat to the area, follow-up with PCP. Findings not consistent with ACS, pneumonia, arrhythmia. Disposition of chest pain of uncertain etiology. Patient verbalized understanding of the plan and return to ED criteria and engaged in shared decision making. Medical Records Medical records reviewed: Yes I reviewed the patient's medical records. Imaging Data Radiologic Study: Attestation: I personally reviewed and interpreted this imaging study as follows: Imaging: X-Ray Radiologist's impression: Exam: XR Chest Exam date and time: 03/31/2025 8:17 PM Age: 39 years old Clinical indication: Other: Chest pain TECHNIQUE: Imaging protocol: Radiologic exam of the chest. Views: 2 views. COMPARISON: No relevant prior studies available. FINDINGS: Lungs: Unremarkable. No consolidation. Pleural spaces: Unremarkable. No pleural effusion. No pneumothorax. Heart/Mediastinum: Unremarkable. No cardiomegaly. Bones/joints: Unremarkable. IMPRESSION: No acute findings. Dictated and Authenticated by: Kyle Berger MD. Lab Data Lab results reviewed: Yes I reviewed the patient's lab results. Labs: Laboratory Tests Range/Units 03/31/25 03/31/25 03/31/25 19:55 20:26 20:57 WBC (4.4-10.8) 10^3/uL 9.23 RBC (4.36-5.78) 10^6/uL 4.92 Hgb (13.5-17.5) g/dL 14.7 Hct (40.0-50.0) % 43.5 MCV (80-95) fL 88 MCH (27.0-33.0) pg 29.9 MCHC (32.0-36.0) % 33.8 RDW (11.8-14.1) % 11.9 Plt Count (130-400) 10^3/uL 275 MPV (8.0-11.0) fL 9.0 Immature Gran % % 0.1 Neutrophils % % 60.1 Lymphocytes % % 31.2 Monocytes % % 5.6 Eosinophils % % 2.5 Basophils % % 0.5 Nucleated RBC % (0.0-0.3) % 0.0 Absolute Neutrophils (1.2-6.7) 10^3/uL 5.54 Absolute Lymphocytes (1.2-3.4) 10^3/uL 2.88 Absolute Monocytes (0.1-0.8) 10^3/uL 0.52 Absolute Eosinophils (0.0-0.7) 10^3/uL 0.23 Absolute Basophils (0.0-0.2) 10^3/uL 0.05 Sodium (136-145) mmol/L 140 Potassium (3.5-5.1) mmol/L 3.4 L Chloride (98-107) mmol/L 102 Carbon Dioxide (21.0-32.0) mmol/L 31.0 Anion Gap (3-11) mmol/L 7.0 BUN (7-18) mg/dL 20 H Creatinine (0.70-1.30) mg/dL 1.2 Est GFR (CKD-EPI 2020) (mL/min/1.73m2) 79.38 Glucose (74-106) mg/dL 100 Calcium (8.5-10.1) mg/dL 9.4 Magnesium (1.8-2.4) mg/dL 2.1 Total Bilirubin (0.2-1.0) mg/dL 0.4 AST (15-37) U/L 20 ALT (16-63) U/L 38 Alkaline Phosphatase (46-116) U/L 61 Troponin I (<or=76) ng/L 7 8 Total Protein (6.4-8.2) g/dL 7.8 Albumin (3.4-5.0) g/dL 4.3 Lipase (<78) U/L 76 TSH (0.36-3.74) uIU/mL 1.95 Urine Color (Yellow) Yellow Urine Clarity (Clear) Clear Urine pH (5-8) 6.5 Ur Specific [place] (1.005-1.025) 1.010 Urine Protein (Neg-Trace) mg/dL Negative Urine Ketones (Negative) mg/dL Negative Urine Blood (Negative) Trace-intact H Urine Nitrite (Negative) Negative Urine Bilirubin (Negative) Negative Urine Urobilinogen (Up to 0.2) mg/dL 0.2 Ur Leukocyte Esterase (Negative) Negative Urine RBC (0-2) HPF 3-5 H Urine WBC (0-5) HPF Negative Ur Epithelial Cells (Negative) HPF Rare Urine Crystals (Negative) HPF Negative Urine Bacteria (Negative) HPF Rare Urine Casts (Negative) LPF Negative Urine Mucus (Negative) Negative Ur Culture Indicated? No Urine Glucose (Negative) mg/dL Negative PFSH All Active Problems (Updated 03/31/25 @ 22:02 by DELPHINE Lopez) Chest pain of uncertain etiology (Acute) Broken tooth (Acute) Dental infection (Acute) Discharge from penis (Acute) Discharge from penis without blood (Acute) Dysuria (Acute) Social History Smoking/Tobacco Use Status: Never Smoking risk assessment performed?: Yes Alcohol Intake: current Alcohol Intake frequency: a few times a month Alcohol type: hard liquor Drug use: Never Substance use type: does not use Housing: apartment Do you feel safe at home: Yes Do you feel safe in your relationship?: Yes
[2025-03-31 20:02] LABS: Abs Immature Grans 0.01 10^3/uL (0.0-0.06); HCT 43.5 % (40.0-50.0); HGB 14.7 g/dL (13.5-17.5); Immature Grans % 0.1 %; MCH 29.9 pg (27.0-33.0); MCHC 33.8 % (32.0-36.0); MCV 88 fL (80-95); MPV 9.0 fL (8.0-11.0); Platelet Count 275 10^3/uL (130-400); RBC 4.92 10^6/uL (4.36-5.78); RDW 11.9 % (11.8-14.1); RDW-SD 38.3 fL; WBC 9.23 10^3/uL (4.4-10.8)
--- NOTE | 2025-03-31 20:16 | DI.RAD_ITS ---
Exam(s) XR CHEST 2V PA LATERAL EXAM: XR CHEST 2V PA LATERAL CLINICAL HISTORY: chest pain TECHNIQUE: 2D digital imaging was performed. Two views. COMPARISON: No exams were available for comparison FINDINGS: HEART: Normal size. Aorta: Not dilated. PULMONARY VASCULATURE: Normal. MEDIASTINUM: Unremarkable. LUNGS: Clear. PLEURAL SPACE: No pleural effusion or pneumothorax. BONE:Unremarkable for age. SOFT TISSUES: Unremarkable. IMPRESSION: No acute abnormality. The preliminary [facility] report was reviewed. DATA REPOSITORY: RADIATION DOSE DELIVERED:
[2025-03-31 20:27] LABS: ALT 38 U/L (16-63); AST 20 U/L (15-37); Albumin 4.3 g/dL (3.4-5.0); Alkaline Phosphatase 61 U/L (46-116); Anion Gap 7.0 mmol/L (3-11); BUN 20 mg/dL (7-18); Bilirubin, Total 0.4 mg/dL (0.2-1.0); CO2 31.0 mmol/L (21.0-32.0); Calcium 9.4 mg/dL (8.5-10.1); Chloride 102 mmol/L (98-107); Estimated GFR 79.38 (mL/min/1.73m2); Glucose 100 mg/dL (74-106); Lipase 76 U/L (<78); Magnesium 2.1 mg/dL (1.8-2.4); Potassium 3.4 mmol/L (3.5-5.1); Sodium 140 mmol/L (136-145); TSH (W/Ref FT4) 1.95 uIU/mL (0.36-3.74); Total Protein 7.8 g/dL (6.4-8.2); Troponin I 7 ng/L (<or=76)
[2025-03-31 20:34] LABS: Glucose Negative (Negative)
[2025-03-31 20:40] LABS: C & S Indicated? No; WBC Negative HPF (0-5)
--- NOTE | 2025-03-31 20:50 | DI.VRAD_ITS ---
PROCEDURE INFORMATION: Exam: XR Chest Exam date and time: 03/31/2025 8:17 PM Age: 39 years old Clinical indication: Other: Chest pain TECHNIQUE: Imaging protocol: Radiologic exam of the chest. Views: 2 views. COMPARISON: No relevant prior studies available. FINDINGS: Lungs: Unremarkable. No consolidation. Pleural spaces: Unremarkable. No pleural effusion. No pneumothorax. Heart/Mediastinum: Unremarkable. No cardiomegaly. Bones/joints: Unremarkable. IMPRESSION: No acute findings. Dictated and Authenticated by: Kyle Berger MD. Orderin Jazlyn Grady MD
[2025-03-31 22:00] LABS: Troponin I 8 ng/L (<or=76)
== END 2025-03-31 22:12 | disposition home or self-care (01) ==
PROVIDERS: Emergency Provider Physician Assistant; PCP Nurse Practitioner Family
DX: R07.9 Chest pain, unspecified (principal)
CPT/HCPCS: 99283; 99284; 36415; 80053; 83690; 93005; 71046; 81003; 81015; 83735; 84443; 84484; 85025; 93010